=== PATIENT | female | born 1975 | race Caucasian/White ===

== ENCOUNTER → 2016-08-29 | Outpatient (CLI) | payer OTHER ==
--- NOTE | 2016-08-29 11:14 | USB ---
Reason for exam: follow-up at short interval from prior study. History: Family history of breast cancer in mother at age 58. Physical Findings: Nurse did not find any significant physical abnormalities on exam. US Breast Limited BILAT Right breast ultrasound including all four quadrants, the retroareolar region and axilla demonstrates a 1.5 x 1.0 x 1.4cm oval, cystic, palpable lesion at 1 o'clock. Right breast ultrasound demonstrates a 1.2 x 0.9 x 1.2cm oval, cystic, palpable lesion at 10 o'clock and a 5.5 x 2.3 x 4.1cm oval, cystic, palpable lesion at 3 o'clock. These results were verbally communicated with the patient and result sheet given to the patient on 08/29/16. ASSESSMENT: Benign, BI-RAD 2 RECOMMENDATION: Follow-up diagnostic mammogram of both breasts.
--- NOTE | 2016-08-29 11:15 | MM ---
Reason for exam: additional evaluation requested from abnormal screening. Last mammogram was performed 1 year ago. History: Family history of breast cancer in mother at age 58. MG 3D Diag Mammo W/Cad RHEA Bilateral CC and MLO view(s) were taken. Prior study comparison: August 21, 2015, bilateral MG 3d diag mammo w/cad RHEA. June 02, 2014, right breast MG work up mamm w CAD RT. The breast tissue is extremely dense which could obscure a lesion on mammography. There is chronic nodularity in the left breast. There is no dominant lesion. These results were verbally communicated with the patient and result sheet given to the patient on 08/29/16. ASSESSMENT: Benign, BI-RAD 2 RECOMMENDATION: Routine screening mammogram of both breasts in 1 year. Manage on a clinical basis with regard to pain.
== END | disposition home or self-care (01) ==
LOC: RADUSWWP 09:34
PROVIDERS: ATTEND Surgery
DX: N60.09 Solitary cyst of unspecified breast (principal); R92.8 Other abnormal and inconclusive findings on diagnostic imaging of breast
CPT/HCPCS: 76642; G0204; G0279

== ENCOUNTER → 2017-07-22 | Outpatient (CLI) | payer OTHER ==
--- NOTE | 2017-07-23 10:24 | USB ---
Reason for exam: clinical finding. History: Family history of breast cancer in mother at age 58. Indicated problem(s): palpable abnormality and pain in both breasts. Physical Findings: Nurse Summary: numerous BB-palpable (nurse kp). US Breast BILAT Right breast ultrasound includes all four quadrants, the retroareolar region and axilla. Finding demonstrates a 0.8 x 0.6 x 0.7cm oval, cystic lesion at 1 o'clock and a 0.3 x 0.2 x 0.3cm oval, cystic, palpable lesion at 10 o'clock. Left breast ultrasound includes all four quadrants, the retroareolar region and axilla. Finding demonstrates a 2.2 x 1.5 x 2.6cm oval, cystic, palpable lesion at 2 o'clock, a 2.1 x 1.8 x 1.9cm oval, cystic, palpable lesion at 3 o'clock, a 0.6 x 0.3 x 0.5cm oval, mixed, hypoechoic lesion at 4 o'clock, 6 month follow up is stable can be considered benign and a 1.5 x 1.0 x 1.5cm oval, cystic, palpable lesion at 10 o'clock. These results were verbally communicated with the patient and result sheet given to the patient on 07/22/17. ASSESSMENT: Probably benign, BI-RAD 3 RECOMMENDATION: Ultrasound of the left breast in 6 months. (4 o'clock)
== END | disposition home or self-care (01) ==
LOC: RADUSWWP 08:39
PROVIDERS: ATTEND Surgery
DX: N60.09 Solitary cyst of unspecified breast (principal)

== ENCOUNTER → 2017-08-19 | Day surgery (SDC) | payer OTHER ==
[2017-08-19 12:14] VITALS: RESP 12
[2017-08-19 13:54] VITALS: BP 153/89; PULSE 64; TEMP 98.4
--- NOTE | 2017-08-19 16:52 | USB ---
EXAMINATION TYPE: US discontinued breast asp RT DATE OF EXAM: 08/19/2017 COMPARISON: NONE CLINICAL HISTORY: R92.8. Pain in right breast TECHNIQUE: Real-time linear array sonography is performed over the right breast with attention to th e right upper outer quadrant at the level of the patient's discomfort. Findings: There is normal breast tissue in the upper outer quadrant of the right breast. Note is made of a small cyst like structure measuring 0.6 x 0.5 x 0.5 cm at the 1:00 B to C region. This is away from the patient's location of pain. No suspicious ultrasound abnormalities in the upper outer quadra nt correlating to the patient's level of pain is identified. On close discussion with the patient, th is appears to correlate with the patient's menstrual cycle and is not focal or persistent. This case was discussed by telephone with Dr. Montiel by Dr. Ramirez. If there was a specific abnorm ality this would've been biopsied. Given the normal appearance on ultrasound no biopsy of the right b reast was performed at this time. Please also see left breast cyst aspiration x2 same date. IMPRESSION: 1. Normal upper outer quadrant right breast by ultrasound. 2. BI-RADS 1 Recommendations: 1. Clinical management of patient's breast pain. 2. Diagnostic imaging can be performed for changing or clinically suspicious findings.
--- NOTE | 2017-08-20 07:51 | MM ---
Reason for exam: additional evaluation requested from abnormal screening. Last mammogram was performed 1 year ago. History: Family history of breast cancer in mother at age 58. MG Diagnostic Mammo LT Wo CAD CC and LM view(s) were taken of the left breast. Prior study comparison: August 29, 2016, bilateral MG 3d diag mammo w/cad RHEA. August 21, 2015, bilateral MG 3d diag mammo w/cad RHEA. ASSESSMENT: Post procedure mammogram for marker placement RECOMMENDATION: Ultrasound of the left breast in 6 months. PENDING PATHOLOGY RESULTS.
--- NOTE | 2017-08-20 17:36 | USB ---
EXAMINATION TYPE: US breast aspiration single LT DATE OF EXAM: 08/20/2017 COMPARISON: NONE CLINICAL HISTORY: N60.02 Cyst of left breast. Second left breast cyst for aspiration. Technique: Real-time linear array sonography is performed over the left breast. Cysts at 2 and 3:00 are identified. 4:00 hypoechoic area appears stable from prior examinations. Case was discussed with Dr. Mo by Dr. Ramirez by telephone. The cysts at 2 and 3:00 recommended for aspiration due to patient's clinical findings. If abnormalities may be identified on the right this area would also be recommended. Subsequent evaluation of the right breast determine no ultrasound abnormality and no cysts and no aspiration on the right was performed. The procedure was explained to the patient, the risks complications and benefits. All questions are answered. Written and verbal informed consent was obtained. A timeout was performed. The 3:00 left breast cyst was localized. The skin was cleansed with Betadine. The skin and deeper breast tissue was anesthetized with 1% lidocaine with sodium bicarbonate. Under ultrasound guidance an 18-gauge needle was advanced into the cyst and the contents aspirated. Contents were labeled and transferred to pathology for additional evaluation. The 2:00 left breast cyst was localized. The skin was cleansed with Betadine. The skin and deeper breast tissue was anesthetized with 1% lidocaine with sodium bicarbonate. Under ultrasound guidance an 18-gauge needle was advanced into the cyst and the contents aspirated. Contents were labeled and transferred to pathology for additional evaluation. IMPRESSION: 1. Successful ultrasound-guided cyst aspiration 2:00 and 3:00 positions. Recommendations: 1. Final recommendations are pending pathology results. 2. Clinical management of patient's right breast pain. Pathology Results: Benign A. BREAST, LEFT, THREE O'CLOCK, CORE BIOPSY: DEGENERATED CELLULAR MATERIAL, FOAMY HISTIOCYTES AND RARE AGGREGATES OF BLAND APOCRINE CELLS CONSISTENT WITH APOCRINE CYST/CYST CONTENTS. B. BREAST, LEFT, TWO O'CLOCK, ASPIRATE: DEGENERATED CELLULAR MATERIAL, BLOOD AND RARE AGGREGATE OF BLAND APOCRINE CELLS CONSISTENT WITH APOCRINE CYST/CYST CONTENTS. Recommendation Follow up ultrasound of the left breast in 6 months. [facility]
== END ==
LOC: RADUSWWP 11:58
PROVIDERS: ATTEND Surgery
DX: N60.02 Solitary cyst of left breast (principal); Z80.3 Family history of malignant neoplasm of breast
CPT/HCPCS: 76942; 77065; 88108; 88305

== ENCOUNTER → 2018-02-18 | Outpatient (CLI) | payer OTHER ==
--- NOTE | 2018-02-18 09:20 | MM ---
Reason for exam: follow-up at short interval from prior study. Last mammogram was performed 6 months ago. History: Family history of breast cancer in mother at age 58. US discontinued breast asp RT of the right breast, August 20, 2017. Benign US breast aspiration ea add LT of the left breast, August 19, 2017. Benign US breast aspiration single LT of the left breast, August 19, 2017. Physical Findings: Nurse Summary: various palpables bilateral breasts (nurse ts). MG 3D Diag Mammo W/Cad RHEA Bilateral CC and MLO view(s) were taken. Prior study comparison: August 19, 2017, left breast MG diagnostic mammo LT wo CAD. August 29, 2016, bilateral MG 3d diag mammo w/cad RHEA. The breast tissue is heterogeneously dense. This may lower the sensitivity of mammography. There is chronic nodularity bilaterally. No significant new findings when compared with previous films. These results were verbally communicated with the patient and result sheet given to the patient on 02/18/18. ASSESSMENT: Incomplete: need additional imaging evaluation, BI-RAD 0 RECOMMENDATION: Ultrasound of both breasts.
--- NOTE | 2018-02-18 09:25 | USB ---
Reason for exam: additional evaluation requested from abnormal screening. History: Family history of breast cancer in mother at age 58. US discontinued breast asp RT of the right breast, August 20, 2017. Benign US breast aspiration ea add LT of the left breast, August 19, 2017. Benign US breast aspiration single LT of the left breast, August 19, 2017. US Breast BILAT Right complete breast ultrasound includes all four quadrants, the retroareolar region and axilla. Finding demonstrates no cystic or solid lesion seen. Left complete breast ultrasound includes all four quadrants, the retroareolar region and axilla. Finding demonstrates a 1.1 x 0.7 x 0.9cm oval, cystic lesion at 2 o'clock, a 1.5 x 0.9 x 2.5cm oval, cystic lesion at 10 o'clock and a 1.7 x 1.1 x 1.5cm oval, cystic lesion at 9 o'clock. Heterogeneous dense tissue noted throughout both breast. These results were verbally communicated with the patient and result sheet given to the patient on 02/18/18. ASSESSMENT: Benign, BI-RAD 2 RECOMMENDATION: Surgical consultation of the left breast. Called with mammographic findings and has scheduled an appointment for the patient for 03/02/18 at 1:[address] Montiel. PRELIMINARY REPORT CALLED AND FAXED TO DR. MONTIEL ON 02/18/18. Routine screening mammogram of both breasts in 1 year.
== END | disposition home or self-care (01) ==
LOC: RADMAMWWP 07:37
PROVIDERS: ATTEND Surgery
DX: R92.8 Other abnormal and inconclusive findings on diagnostic imaging of breast (principal); N60.01 Solitary cyst of right breast; N60.02 Solitary cyst of left breast
CPT/HCPCS: 77066; 76641; G0279; 77062

== ENCOUNTER 2018-09-06 07:48 | Day surgery (SDC) | payer OTHER ==
[~2018-09-06 07:48] MED LIST: LACTATED RINGERS 1,000 ML IV SCH; SODIUM CHLORIDE 0.9% 1,000 ML IV SCH
[2018-09-06] MEDS ORDERED: SODIUM CHLORIDE 0.9% 1,000 ML IV ONE ×2 (08:36→13:40)
[2018-09-06] MEDS ORDERED: LIDOCAINE 1% INJ 10MG/ML (20 ML MDV) ONE (09:13)
[2018-09-06] MEDS ORDERED: HYDROmorphone (PF) 1 MG/ML ONE (10:10)
[2018-09-06] MEDS ORDERED: ISOPROTERENOL 250 MCG/1.25 ML SYR IV ONE (10:10)
[2018-09-06] MEDS ORDERED: KETAMINE 10 MG/ML 20 ML VIAL ONE (10:10)
[2018-09-06] MEDS ORDERED: MIDAZOLAM 2 MG/2 ML VIAL ONE (10:10)
[2018-09-06] MEDS ORDERED: fentaNYL (PF) 50 MCG/ML 2 ML AMP ONE (10:10)
[2018-09-06] MEDS ORDERED: PROPOFOL 10 MG/ML 20 ML VIAL IV ONE (10:10)
[2018-09-06] MEDS ORDERED: LIDOCAINE 1% INJ 10MG/ML (20 ML MDV) SQ ONE ×2 (10:43→11:50)
[2018-09-06] MEDS ORDERED: LACTATED RINGERS 1,000 ML IV ONE (13:40)
[2018-09-06] MEDS ORDERED: ACETAMINOPHEN IV (For NPO) 1,000 MG in EMPTY BAG 1 BAG IVPB ONE (13:47)
[2018-09-06] MEDS ORDERED: ACETAMINOPHEN TAB 325 MG TAB PO PRN (13:47)
[2018-09-06 15:11] VITALS: BMI 27.0
[2018-09-06] MEDS: HYDROcodone/APAP 5-325MG 1 EACH TAB PO PRN (15:19)
--- NOTE | 2018-09-06 17:55 | PCN ---
PROCEDURE NOTE This patient is a 43-year-old female with recurrent palpitations and documented narrow complex SVT, poor tolerance to multiple AV hemalatha blocking drugs and refractory to treatment. The patient was brought to the EP lab in a fasting state. Written informed consent was obtained prior to the procedure. Venous sheaths were placed in the right and left femoral veins: 3 venous sheaths in the right femoral vein and 1 venous sheath in the left femoral vein. Via these, diagnostic catheters were placed in the right heart (high right atrial catheter, His bundle catheter, RV catheter). Sinus cycle length 958 milliseconds, DC interval 142 milliseconds, QRS 82 milliseconds, QT 423 milliseconds. AH interval 63 milliseconds, HV interval 52 milliseconds. Sinus node recovery times at 600, 500 and 400 milliseconds were 961, 993 and 931 milliseconds. Corresponding corrected sinus node recovery times were within normal limits. AV node Wenckebach block 290 milliseconds. VA Wenckebach block 350 milliseconds. No delta waves. There was a semblance of slow pathway conduction in the baseline state as well as intermittent right bundle branch block aberrancy. Atrial extrastimulation was performed after double extra stimuli and single echo beats and double echo beats were noted. When ventricular extrastimulation was performed, no SVT was induced. Para-Hisian pacing was performed. A hemalatha response was noted. Isuprel was started wide open and then at 2 mcg. AV node Wenckebach block 200 milliseconds. Slow pathway was noted at 220 milliseconds. Very rapid SVT was induced consistently with rapid straight pacing at a cycle length of between 230 and 210 milliseconds from the high right atrium as well as from the coronary sinus. Septal times were short and less than 60 milliseconds. However, despite multiple efforts on Isuprel, the tachycardia could not be entrained from the right ventricle and therefore we could never really prove if it was a septal atrial tachycardia with activation with conduction down the slow pathway or AV hemalatha reentry. However, since she had a slow pathway, we proceeded with ablation of the slow pathway. This was a difficult and a long procedure. Three-D mapping was performed. The His cloud was quite large and extended inferiorly and close to almost 1.2 cm away from the coronary sinus os. RF ablation was applied in the posterior septal region. Finally, successful ablation was performed in the posterior septal region. Good power and adequate temperatures were achieved and the tachycardia was rendered non-inducible. However, it took a long time to map the slow pathway, more than usual. Because of the unusual anatomy, a slightly more posteriorly located coronary sinus, successful ablation was performed quite anterior to the coronary sinus in the posterior septal area. The patient tolerated the procedure well without any acute complications. High-dose Isuprel was then started at the end of the procedure and there was no evidence of slow pathway conduction and there was no evidence for AV hemalatha reentry. This was a sharp contrast to before the procedure, when she had AV hemalatha reentry induced very easily with straight atrial pacing on Isuprel. However, since we had never excluded septal atrial tachycardia, after every few RF ablations we would go back and look for any inducibility, and up until the posterior septal path area was mapped and ablated, the tachycardia continued. Once this area was ablated right in front of the in the coronary sinus os, no further SVT was induced. The patient tolerated the procedure well without any acute complications. 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 PROCEDURES PERFORMED: 1. Comprehensive diagnostic EP study. 2. CS pacing and recording. 3. Three-D mapping. 4. Programmed stimulation after Isuprel. 5. Three-D mapping and radiofrequency ablation of the slow pathway. Extended procedure. MMODL / IJN: [id number] /
[2018-09-06] MEDS ORDERED: CYCLOBENZAPRINE 10 MG TAB PO PRN (21:17)
[2018-09-07] MEDS: HYDROcodone/APAP 5-325MG 1 EACH TAB PO PRN (06:03)
[2018-09-07] MEDS ORDERED: LEVOTHYROXINE 112 MCG TAB PO SCH (06:30)
[2018-09-07 07:32] VITALS: BP 119/74; PULSE 75; RESP 18; TEMP 98.3
[2018-09-07] MEDS ORDERED: MONTELUKAST 10 MG TAB PO SCH (09:00)
--- NOTE | 2018-09-07 09:39 | P.DS ---
Providers Attending physician: Stone Bradshaw Primary care physician: [place] [facility] Course: Patient is doing well. No chest discomfort dizziness lightheadedness palpitations Runs of healed well mildly tender no hematoma Vitals are stable blood pressure 119/74 mmHg pulse rate in the 70s Breath sounds are clear no rhonchi no crackles Heart sounds are normal normal S1 normal S2 no murmurs or gallops or rub Abdomen soft Extremities warm no edema Impression Recurrent SVT assessment of AV node reentry Status post successful slow pathway ablation and the tachycardia was rendered noninducible Suggest Stop metoprolol Discharge home today in follow-up with Dr. Martinez in 1-2 weeks Plan - Discharge Summary Discharge Rx Participant: Yes New Discharge Prescriptions: Discontinued Metoprolol Tartrate [Lopressor] 25 each PO BID No Action HYDROcodone/APAP 10-325MG [[place] 10-325] 1 tab PO BID PRN PRN Reason: Pain Cyclobenzaprine [Flexeril] 10 mg PO DAILY PRN PRN Reason: muscle relaxant Levothyroxine Sodium 112 mcg PO DAILY Montelukast [Singulair] 10 mg PO DAILY FLUoxetine HCL [PROzac] 20 mg PO HS Cetirizine HCl [Zyrtec] 10 mg PO DAILY Albuterol Inhaler [Ventolin Hfa Inhaler] 1 - 2 puff INHALATION RT-Q6H PRN MDD S PRN Reason: Shortness Of Breath Fluticasone Nasal [place] [Flonase Nasal Arg[place]] 1 spray EA NOSTRIL BID Ibuprofen [Motrin] 800 mg PO DAILY PRN PRN Reason: Pain Cholecalciferol (Vitamin D3) [Vitamin D3] 20,000 unit PO WEEKLY Discharge Medication List Cyclobenzaprine [Flexeril] 10 mg PO DAILY PRN 12/05/15 [History] HYDROcodone/APAP 10-325MG [[place] 10-325] 1 tab PO BID PRN 12/05/15 [History] Albuterol Inhaler [Ventolin Hfa Inhaler] 1 - 2 puff INHALATION RT-Q6H PRN MDD S 09/01/18 [History] Cetirizine HCl [Zyrtec] 10 mg PO DAILY 09/01/18 [History] Cholecalciferol (Vitamin D3) [Vitamin D3] 20,000 unit PO WEEKLY 09/01/18 [ History] FLUoxetine HCL [PROzac] 20 mg PO HS 09/01/18 [History] Fluticasone Nasal [place] [Flonase Nasal [place]] 1 spray EA NOSTRIL BID 09/01/18 [ History] Ibuprofen [Motrin] 800 mg PO DAILY PRN 09/01/18 [History] Levothyroxine Sodium 112 mcg PO DAILY 09/01/18 [History] Montelukast [Singulair] 10 mg PO DAILY 09/01/18 [History] Follow up Appointment(s)/Referral(s): Star Rosales MD [STAFF PHYSICIAN] - 1 Week Activity/Diet/Wound Care/Special Instructions: Post EP study - Ablation instructions 1. Keep access sites dry for 2 days. 2. No heavy lifting or straining for 2 days. 3. Avoid bending the hips repeatedly for 2 days. 4. You may go up and down stairs slowly Call if the following is noted 1. Bleeding, increasing swelling or pain at the access sites. 2. Increasing chest discomfort, especially upon taking a deep breath. 3. Increasing shortness of breath, at rest or with exertion. 4. Undue cough / phlegm 5. Difficulty or pain while swallowing. 6. Pain or change in color in the extremities. 7. Fever, chills, rigors. 8. Increasing headache or neurologic symptoms. 9. Dizziness, fainting, palpitations Stop metoprolol Discharge Disposition: HOME SELF-CARE
[2018-09-07] MEDS ORDERED: FLUoxetine HCL 20 MG CAP PO SCH (21:00)
== END 2018-09-07 10:15 | disposition home or self-care (01) ==
LOC: CATHEP 07:48 → 1SOBS 14:07 → CATHEP 09-07 10:15
PROVIDERS: ATTEND Internal Medicine Clinical Cardiac Electrophysiology
DX: I47.1 Supraventricular tachycardia (principal); I45.10 Unspecified right bundle-branch block; I10 Essential (primary) hypertension; E03.9 Hypothyroidism, unspecified; F41.9 Anxiety disorder, unspecified; F32.9 Major depressive disorder, single episode, unspecified; Z79.890 Hormone replacement therapy; Z79.899 Other long term (current) drug therapy; J30.81 Allergic rhinitis due to animal (cat) (dog) hair and dander; J30.1 Allergic rhinitis due to pollen; Z91.040 Latex allergy status; Z91.011 Allergy to milk products; Z91.018 Allergy to other foods; Z88.8 Allergy status to other drugs, medicaments and biological substances; Z14.8 Genetic carrier of other disease
CPT/HCPCS: 93623; 93613; 93653; 81025; C1894; C1769 ×2; C1893; C1732; C1730 ×2; J2250; J2001; J3010; J1170; J2704

== ENCOUNTER → 2019-02-21 | Outpatient (CLI) | payer OTHER ==
--- NOTE | 2019-02-23 08:16 | MM ---
Reason for exam: screening (asymptomatic). Last mammogram was performed 1 year ago. History: Family history of breast cancer in mother at age 58. US discontinued breast asp RT of the right breast, August 20, 2017. Benign US breast aspiration ea add LT of the left breast, August 19, 2017. Benign US breast aspiration single LT of the left breast, August 19, 2017. Took hormonal contraceptives for 4 years. MG 3D Screening Mammo W/Cad Bilateral CC and MLO view(s) were taken. Prior study comparison: February 18, 2018, bilateral MG 3d diag mammo w/cad RHEA. August 19, 2017, left breast MG diagnostic mammo LT wo CAD. The breast tissue is heterogeneously dense. This may lower the sensitivity of mammography. No significant new finding whe compared with prior studies. ASSESSMENT: Benign, BI-RAD 2 RECOMMENDATION: Routine screening mammogram of both breasts in 1 year.
== END | disposition home or self-care (01) ==
LOC: RADMAMWWP 09:48
PROVIDERS: ATTEND Internal Medicine
DX: Z12.31 Encounter for screening mammogram for malignant neoplasm of breast (principal)
CPT/HCPCS: 77063; 77067

== ENCOUNTER → 2019-04-04 | Outpatient (CLI) | payer OTHER ==
--- NOTE | 2019-04-04 17:59 | MR ---
MRI CERVICAL SPINE: CLINICAL HISTORY: Cervicalgia. Headache and neck pain causing bilateral upper extremity weakness and numbness TECHNIQUE: Multiplanar, multisequence imaging of the cervical spine is performed without IV contrast. COMPARISON: MRI cervical spine May 03, 2014 FINDINGS: Sagittal images of the cervical spine show the craniocervical junction to remain within nor mal limits. The cervical and upper thoracic spinal cord remains stable in caliber and signal. Straig htening of cervical spine is redemonstrated. The vertebral body heights remain normal. Moderate dis c space narrowing C4-C5 and C5-C6 levels redemonstrated. Heterogeneous Modic type II endplate changes again seen increased in prominence from prior. Axial images show the C2-C3 and C3-C4 levels remain within normal limits. Axial images at C4-C5 level showed new broad-based posterior disc protrusion facing anterior thecal s ac nearly up to ventral surface of spinal cord and causing mild left greater than right bilateral benji ral foraminal narrowing. Improvement and right paracentral disc herniation noted from prior. Axial images at C5-C6 level shows lobulated left paracentral/foraminal disc protrusion effaces the an terior thecal sac and causing asymmetric moderate left-sided neural foraminal narrowing. No significa nt change from prior. Axial images at C6-C7 level showed broad based central and paracentral disc protrusion effacing the a nterior thecal sac and causing moderate to severe left and mild right-sided neural foraminal narrowin g with increased neural foraminal narrowing noted versus prior study. Axial images at C7-T1 level show right paracentral/foraminal disc protrusion effacing the anterolater al thecal sac with advanced right and moderate left-sided neural foraminal narrowing. Findings new or more prominent from prior. Suspect 1.1 cm cystic left thyroid nodule stable or slightly smaller in size from prior study axial i mage 12. IMPRESSION: Straightening of cervical spine with multilevel degenerative changes as detailed above. S ome progression in findings lower cervical levels noted from prior.
--- NOTE | 2019-04-04 18:12 | MR ---
EXAMINATION TYPE: MR lumbar spine wo/w con DATE OF EXAM: 04/04/2019 COMPARISON: NONE HISTORY: LBP, LLE radic, hx surgery TECHNIQUE: Multiplanar, multisequence images of the lumbar spine is performed without and with IV contrast, util izing 7.5 mL intravenous Gadavist FINDINGS: Sagittal images of the lumbar spine show vertebral body heights and alignment to remain sat isfactory. Persistent disc desiccation L4-L5 and L5-S1 levels. New Disc desiccation L3-L4 level. Pers istent moderate to severe disc space narrowing L5-S1 level with Modic type II endplate changes redemo nstrated. Annular tear L4-L5 level. The conus medullaris remains normal in position and signal ending mid L1 level. No suspicious enhancement is seen. Axial images at T12-L1 level redemonstrated left paracentral disc protrusion effacing the anterolater al thecal sac axial image 30 which is not significantly changed from prior. Axial images at L1-L2 and L2-L3 levels remain within normal limits. Axial images at L3-L4 level show new mild broad based disc protrusion minimally effacing the anterior thecal sac. Axial images at the L4-L5 level show persistent broad disc bulge with central disc protrusion compone nt effacing anterior thecal sac. Bilateral neural foramina are patent. No significant change from jael or. Axial images at the L5-S1 level shows mild facet degenerative changes bilaterally. Left-sided laminec sara defect is seen. There is moderate broad disc bulge with left paracentral disc protrusion compone nt mildly effacing the anterior thecal sac. Bilateral neural foramina remain patent. There is new moderate to severe left-sided hydronephrosis. IMPRESSION: Multilevel degenerative changes in the lumbar spine as detailed above. Some progression f rom 2010 study noted. New Moderate to severe left-sided hydronephrosis is felt present and warrants f urther clinical workup. Consider obstructing left ureter calculus. A Yellow level critical message alert has been initiated for Radha Spence MD via the [facility] Critical Results System on 04/04/2019 6:09 PM. This message alert has been sent to MD edward Clemens the preferences provided by the clinician for the receipt of Radiology Critical Findings. Message ID [id number].
== END | disposition home or self-care (01) ==
LOC: RADMRIMAIN 14:51
PROVIDERS: ATTEND Internal Medicine
DX: M47.812 Spondylosis without myelopathy or radiculopathy, cervical region (principal); M47.817 Spondylosis without myelopathy or radiculopathy, lumbosacral region
CPT/HCPCS: 72141; 72158; A9585

== ENCOUNTER → 2019-04-07 | Outpatient (CLI) | payer OTHER ==
--- NOTE | 2019-04-07 10:56 | XR ---
EXAMINATION TYPE: XR KUB DATE OF EXAM: 04/07/2019 HISTORY: Pain Comparison: 01/25/2016 Single KUB is submitted for interpretation. Findings: Right renal calculi: 2 right renal calculi seen lower pole measuring up to 3.8 mm. Right ureteral calculi: None Visualized. Left renal calculi: Mid left renal calculus noted measuring 3.5 mm. Calculus at the level of the lef t UPJ measuring 6.8 mm transverse dimension. Additional calculus overlying the left L4 transverse pro cess measuring 5.5 mm. Left ureteral calculi: None Visualized. Pelvic calcifications: Stable pelvic phleboliths noted. Bowel gas pattern is unremarkable. No free air. No mass effects. IMPRESSION: 1. Left-sided UPJ calculus and proximal left ureteral calculus identified. 2. Bilateral nephrolithiasis.
== END | disposition home or self-care (01) ==
LOC: RADXRMAIN 10:42
PROVIDERS: ATTEND Urology
DX: N20.2 Calculus of kidney with calculus of ureter (principal)
CPT/HCPCS: 74018

== ENCOUNTER → 2019-04-08 | Outpatient (CLI) | payer OTHER ==
[2019-04-08 09:38] LABS: Basophils % (A) 1 %; Eosinophils # (A) 0.2 k/uL (0-0.7); Eosinophils % (A) 4 %; HCT 41.7 % (34.0-46.0); HGB 14.4 gm/dL (11.4-16.0); Lymphocytes # (A) 1.5 k/uL (1.0-4.8); Lymphocytes % (A) 26 %; MCH 32.4 pg (25.0-35.0); MCHC 34.4 g/dL (31.0-37.0); Mean Platelet Volume 7.3; Monocytes # (A) 0.3 k/uL (0-1.0); Monocytes % (A) 6 %; Neutrophils # (A) 3.6 k/uL (1.3-7.7); Neutrophils % (A) 62 %; Platelet Count 222 k/uL (150-450); RBC 4.44 m/uL (3.80-5.40); RDW 14.2 % (11.5-15.5); WBC 5.8 k/uL (3.8-10.6)
[2019-04-08 09:47] LABS: Potassium 3.7 mmol/L (3.5-5.1)
[2019-04-08 10:06] LABS: Appearance,Urine Cloudy (Clear); Bacteria,Urine Rare /hpf; Bilirubin,Urine Negative (Negative); Blood,Urine Small (Negative); Color,Urine Yellow; Glucose,Urine (UA) Negative (Negative); Ketones,Urine Negative (Negative); Leukocyte Esterase,Urine Moderate (Negative); Mucus,Urine Occasional /hpf; Nitrite,Urine Negative (Negative); PH, Urine 6.5 (5.0-8.0); Protein,Urine Trace (Negative); RBC,Urine 2 /hpf (0-5); Specific Gravity,Urine 1.017 (1.001-1.035); Squamous Epithelial Cell,Urine 16 /hpf (0-4); Urobilinogen,Urine <2.0 mg/dL (<2.0); WBC,Urine 30 /hpf (0-5)
== END | disposition home or self-care (01) ==
LOC: LABPAT 08:53
PROVIDERS: ATTEND Urology
DX: Z01.818 Encounter for other preprocedural examination (principal); Z01.812 Encounter for preprocedural laboratory examination; I49.9 Cardiac arrhythmia, unspecified; N20.1 Calculus of ureter; R53.83 Other fatigue; R35.0 Frequency of micturition; Z79.899 Other long term (current) drug therapy
CPT/HCPCS: 36415; 80051; 81001; 82565; 84520; 85025; 93005

== ENCOUNTER 2019-04-11 08:59 | Day surgery (SDC) | payer OTHER ==
[2019-04-08 11:39] VITALS: BMI 26.7
--- NOTE | 2019-04-10 22:34 | HP ---
HISTORY AND PHYSICAL DIAGNOSIS: Left ureteral stone. Fern Cuenca is a 44-year-old female with history of stones. She was having bilateral back pain. On 04/04/2019, she had an MRI which identified left hydronephrosis. The patient had a KUB, identifying 2 proximal ureteral stones, 5 and 6 mm on the left and a 3-4 mm left lower pole stone. She was seen in the office and was still having pain. With the MRI findings with a left-sided hydronephrosis and a KUB, the diagnosis was upper ureteral stones. We discussed treatment options. The patient wishes to proceed with shockwave lithotripsy. PAST HISTORY: ALLERGIES: COMPAZINE. MEDICATIONS: Cetirizine, Flexeril, Singulair, flecainide, [place], levothyroxine, Motrin. MEDICAL ILLNESSES: Positive for asthma. She has mitral valve prolapse. She has hypothyroidism. SURGICAL HISTORY: Includes a salpingotomy, back surgery, shockwave lithotripsy x2. FAMILY HISTORY: Noncontributory. SOCIAL HISTORY: Noncontributory. REVIEW OF SYSTEMS: Is noncontributory. PHYSICAL EXAMINATION: On examination, pleasant, white female, 181 pounds, 69 inches, blood pressure 118/78, pulse 73, respirations 16. HEENT: Clear. CHEST: Clear to auscultation. HEART is without murmur or gallop. ABDOMEN: Soft, no organomegaly. EXTREMITIES: No edema. NEUROLOGIC exam is grossly intact. IMPRESSION: The patient has left ureteral calculi with colic and comes for shockwave lithotripsy. MMODL / IJN: [id number] /
[~2019-04-11 08:59] MED LIST changes: +LIDOCAINE 1% 20 ML VIAL (10MG/ML) FOR IV START INTRADERMA PRN; +Pre Op ABX Message 1 EACH MISC MISCELLANE ONE; -SODIUM CHLORIDE 0.9% 1,000 ML IV SCH
--- NOTE | 2019-04-11 09:21 | XR ---
EXAMINATION TYPE: XR KUB DATE OF EXAM: 04/11/2019 CLINICAL DATA: 44-year-old female presurgical evaluation, [facility] COMPARISON: 04/07/2019 FINDINGS: Nonobstructive bowel gas pattern. Moderate overall stool burden. Redemonstrated bilateral nephrolithiasis measuring 4 mm and 3 mm on the right and 4 mm and 9 mm on th e left. There is one calcification which is more medially located in the mid abdomen measuring 8 mm a nd could correspond to an upper ureteral calculus. IMPRESSION: 1. Bilateral nephrolithiasis measuring up to 9 mm. 2. A 8 mm calcification in the left paramedian mid abdomen is more inferior and medially located and could be in the upper left ureter, unchanged from prior.
[2019-04-11] MEDS ORDERED: FUROSEMIDE 10 MG/ML 2 ML VIAL IV STA (11:05)
[2019-04-11] MEDS ORDERED: fentaNYL (PF) 50 MCG/ML 2 ML AMP ONE (11:18)
[2019-04-11] MEDS ORDERED: MIDAZOLAM 2 MG/2 ML VIAL ONE (11:18)
[2019-04-11] MEDS ORDERED: FUROSEMIDE 10 MG/ML 2 ML VIAL ONE (11:18)
[2019-04-11] MEDS ORDERED: PROPOFOL 10 MG/ML 20 ML VIAL IV ONE (11:18)
--- NOTE | 2019-04-11 12:13 | P.OP ---
Date of Procedure: 04/11/19 Preoperative Diagnosis: Left ureteral calculi, left renal calculi Postoperative Diagnosis: Same Procedure(s) Performed: Left extracorporeal shockwave lithotripsy (ESWL) Anesthesia: FLORECITA Surgeon: Florentino Lomeli Estimated Blood Loss (ml): 0 IV fluids (ml): 450 Pathology: none sent Condition: stable Disposition: PACU Indications for Procedure: The patient is a 44-year-old white female with a history of urolithiasis. A recent MRI showed left hydronephrosis due to 2 left proximal ureteral calculi. A KUB x-ray shows these calculi, as well as renal calculi. She comes for ESWL. Operative Findings: Excellent fragmentation of the calculi treated. Description of Procedure: The patient was taken to the operating room and placed on the Dornier Compact Delta II lithotripter in the supine position. The calculi were seen on biplanar fluoroscopy. Lasix 10 mg was given intravenously. Once the patient was properly positioned and sedated, lithotripsy was performed. The energy level was gradually increased per protocol, to an energy level of 5. After 200 shocks were administered, a 2 minute pause was instituted per protocol. Initially, the more distal of the ureteral calculi was treated. Once this was no longer seen, the more proximal of the ureteral calculi was treated. After this was no longer visible, treatment moved to the kidney as several calculi were treated. A total of 2500 shocks were given at a rate of 80 shocks per minute. Fluoroscopy was utilized at a minimum to ensure proper positioning and determine the treatment status. None of the calculi could be seen following treatment, consistent with excellent fragmentation. The patient tolerated the procedure well was taken to the recovery room in stable condition. Instructions were given to strain the urine, and the patient will follow-up within one week.
[2019-04-11 12:33] VITALS: TEMP 97
[2019-04-11] MEDS: HYDROmorphone 1 MG/ML 1 ML SYRINGE IVP ONE ×2 (12:54→12:59)
[2019-04-11 13:08] VITALS: RESP 16
[2019-04-11 13:37] VITALS: BP 131/87; PULSE 60
== END 2019-04-11 14:00 | disposition home or self-care (01) ==
LOC: ORWHC2ENDO 08:59
PROVIDERS: ATTEND Urology
DX: N13.2 Hydronephrosis with renal and ureteral calculous obstruction (principal); E03.9 Hypothyroidism, unspecified; J45.909 Unspecified asthma, uncomplicated; Z79.899 Other long term (current) drug therapy; Z88.8 Allergy status to other drugs, medicaments and biological substances; Z79.1 Long term (current) use of non-steroidal anti-inflammatories (NSAID); Z79.891 Long term (current) use of opiate analgesic; Z79.51 Long term (current) use of inhaled steroids; Z91.040 Latex allergy status; Z91.011 Allergy to milk products
CPT/HCPCS: 74018; 50590; J2250; J1940; J3010; J1170; J2704

== ENCOUNTER → 2019-04-16 | Outpatient (CLI) | payer OTHER ==
--- NOTE | 2019-04-16 11:07 | XR ---
EXAMINATION TYPE: XR KUB DATE OF EXAM: 04/16/2019 HISTORY: Pain Comparison: 04/11/2019 Single KUB is submitted for interpretation. Findings: Right renal calculi: Lower pole right-sided nephrolithiasis measuring 3.3 and 2.2 mm. Right ureteral calculi: None Visualized. Left renal calculi: Left mid pole renal calculus measuring 4.5 mm. Left ureteral calculi: None Visualized. Pelvic calcifications: None Visualized. Bowel gas pattern is unremarkable. No free air. No mass effects. IMPRESSION: 1. Lateral nephrolithiasis.
== END | disposition home or self-care (01) ==
LOC: RADXRMAIN 10:38
PROVIDERS: ATTEND Urology
DX: N20.0 Calculus of kidney (principal)
CPT/HCPCS: 74018

== ENCOUNTER 2019-08-20 15:02 | Emergency (ER) | payer OTHER ==
[2019-08-20 15:23] VITALS: RESP 18; TEMP 98.6
[2019-08-20] MEDS ORDERED: KETOROLAC 30 MG/ML 1 ML VIAL IM STA (15:43)
--- NOTE | 2019-08-20 16:05 | ED ---
Lower Extremity Injury HPI - General Chief Complaint: Extremity Injury, Lower Stated Complaint: Foot pain Time Seen by Provider: 08/20/19 15:25 Source: patient Mode of arrival: ambulatory Limitations: no limitations - History of Present Illness Initial Comments: 44-year-old female presenting for right foot pain and swelling x 1 day. Patient states that she is pain over the base of the right great toe. Patient does have history of kidney stones is unsure of the type is stone that she produces. Patient denies any chest pain shortness of breath. Patient denies any history of DVT or pulmonary embolism patient denies any calf pain patient is a recent surgical procedures history of active or previous cancer denies any hormone use or recent immobilization or travel. Patient has no other complaints she states it increases and tenderness with ambulation. Patient denies noting any direct injury or trauma. Patient denies any fever or flulike symptoms or noting any significant redness at this time she states than ongoing for the past day. Remaining review of systems negative upon arrival patient's amateur she appears well no signs of acute distress. Pt states that she was concerned of a blood clot and that is why she presents emergency department today - Related Data Home Medications Medication Instructions Recorded Confirmed Cyclobenzaprine [Flexeril] 10 mg PO DAILY PRN 12/05/15 04/11/19 HYDROcodone/APAP 10-325MG [[place] 1 tab PO BID PRN 12/05/15 04/11/19 10-325] Albuterol Inhaler [Ventolin Hfa 1 - 2 puff INHALATION RT-Q6H PRN 09/01/18 04/11/19 Inhaler] MDD S Cetirizine HCl [Zyrtec] 10 mg PO DAILY 09/01/18 04/11/19 Cholecalciferol (Vitamin D3) 20,000 unit PO WEEKLY 09/01/18 04/11/19 [Vitamin D3] FLUoxetine HCL [PROzac] 20 mg PO HS 09/01/18 04/11/19 Fluticasone Nasal [place] [Flonase 1 spray EA NOSTRIL BID 09/01/18 04/11/19 Nasal [place]] Ibuprofen [Motrin] 800 mg PO DAILY PRN 09/01/18 04/11/19 Levothyroxine Sodium 112 mcg PO DAILY 09/01/18 04/11/19 Montelukast [Singulair] 10 mg PO DAILY 09/01/18 04/11/19 Ergocalciferol (Vitamin D2) 50,000 unit PO WE 04/08/19 04/11/19 [Vitamin D2] Flecainide [Tambocor] 50 mg PO Q12HR 04/08/19 04/11/19 Previous Rx's Medication Instructions Recorded HYDROcodone/APAP 10-325MG [[place] 1 tab PO Q6HR PRN 3 Days #10 tab 04/11/19 10-325] Indomethacin [Indocin] 50 mg PO TID 5 Days #15 capsule 08/20/19 Allergies Allergy/AdvReac Type Severity Reaction Status Date / Time cat dander Allergy Unknown Allergy Verified 04/08/19 11:11 testing positive dog dander Allergy Unknown Allergy Verified 04/08/19 11:11 testing positive grass pollen Allergy Unknown Allergy Verified 04/08/19 11:11 testing positive latex Allergy Unknown Itching Verified 04/08/19 11:11 milk Allergy Unknown Allergy Verified 04/08/19 11:11 testing positive ragweed pollen Allergy Unknown Allergy Verified 04/08/19 11:11 testing positive tree and shrub pollen Allergy Unknown Allergy Verified 04/08/19 11:11 testing positive prochlorperazine Allergy jerking,twi Verified 04/08/19 11:11 [From Compazine] tching prochlorperazine edisylate Allergy jerking,twi Verified 04/08/19 11:11 [From Compazine] tching prochlorperazine maleate Allergy jerking,twi Verified 04/08/19 11:11 [From Compazine] tching cantolope Allergy Unknown Allergy Uncoded 04/08/19 11:11 testing positive Review of Systems ROS Statement: Those systems with pertinent positive or pertinent negative responses have been documented in the HPI. ROS Other: All systems not noted in ROS Statement are negative. Past Medical History Past Medical History: Supraventricular Tachycardia (SVT), Thyroid Disorder Additional Past Medical History / Comment(s): kidney stones, RECENT KIDNEY BLOCKAGE, hx. 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 Patient states that she has always done well with anesthesia but in November with uterine ablation she states that she noticed it "took her longer to recover" as she was very groggy into the next day and felt as if she had been drugged. Past Psychological History: Anxiety Smoking Status: Never smoker Past Alcohol Use History: None Reported Past Drug Use History: Marijuana - Past Family History Mother Family Medical History: Cancer Additional Family Medical History / Comment(s): breast cancer dx at age 56 Father Family Medical History: Diabetes Mellitus Additional Family Medical History / Comment(s): Diabetes Type 2, General Exam - General Exam Comments Initial Comments: General: The patient is awake and alert, in no distress, and does not appear acutely ill. Eye: Pupils are equal, round and reactive to light, extra-ocular movements are intact. No nystagmus. There is normal conjunctiva bilaterally. No signs of icterus. Cardiovascular: There is a regular rate and rhythm. No murmur, rub or gallop is appreciated. Respiratory: Lungs are clear to auscultation, respirations are non-labored, breath sounds are equal. No wheezes, stridor, rales, or rhonchi. Musculoskeletal: Slight swellling, no redness but pain to palpation localized over the great toe MTP joint. No pain in the forefoot or calf. (-) Homans. Normal ROM, no tenderness of ankles/kness. Strength 5/5. Sensation intact. DP pulses equal bilaterally 2+. No coolness, or pallor. Neurological: A&O x 3. CN II-XII intact grossly, There are no obvious motor or sensory deficits. Coordination appears grossly intact. Speech is normal. Skin: Skin is warm and dry and no rashes or lesions are noted. Psychiatric: Cooperative, appropriate mood & affect, normal judgment. Limitations: no limitations Course Vital Signs 08/20/19 08/20/19 08/20/19 15:21 17:43 17:47 Temperature 98.6 F 98.6 F 98.6 F Pulse Rate 90 77 77 Respiratory 18 18 18 Rate Blood Pressure 122/75 163/100 163/100 O2 Sat by Pulse 98 99 99 Oximetry Medical Decision Making - Medical Decision Making She fell 4-year-old female presenting for right great toe pain patient noticed slight swelling was concerned she had a blood clot. No history. Patient has no concerning risk factors ultrasound was obtained to rule out a clot revealing no acute findings. My suspicion was low patient does have what appears clinically to be possible gouty exacerbation patient has known history of recurrent kidney stones unsure of the origin. Patient will be started on indomethacin with return parameters A fevers or increasing pain and swelling. I discussed the importance of primary care follow-up patient is agreeable to this Plan discharge discussed case with . he was agreeable with this care plan as well. Disposition Clinical Impression: Pain of right great toe Disposition: HOME SELF-CARE Condition: Good Instructions (If sedation given, give patient instructions): Gout (ED) Additional Instructions: Please use medication as discussed. Please follow-up with family doctor in the next 2 days. Please return to emergency room if the symptoms increase or worsen or for any other concerns. Prescriptions: Indomethacin [Indocin] 50 mg PO TID 5 Days #15 capsule Is patient prescribed a controlled substance at d/c from ED?: No Referrals: Radha Spence MD [Primary Care Provider] - 1-2 days Time of Disposition: 17:24
--- NOTE | 2019-08-20 16:40 | XR ---
EXAMINATION TYPE: XR foot complete RT DATE OF EXAM: 08/20/2019 COMPARISON: NONE HISTORY: Pain and swelling TECHNIQUE: 3 views FINDINGS: There is plantar calcaneal spurring. There is some spurring at the first metatarsal head. I see no fracture nor dislocation. IMPRESSION: Mild degenerative spurring. No fracture seen.
--- NOTE | 2019-08-20 17:09 | US ---
EXAMINATION TYPE: US venous doppler duplex LE RT DATE OF EXAM: 08/20/2019 4:58 PM COMPARISON: NONE CLINICAL HISTORY: foot swelling. foot swelling x 2 days, no h/o dvt SIDE PERFORMED: Right TECHNIQUE: The lower extremity deep venous system is examined utilizing real time linear array sonog fidelia with graded compression, doppler sonography and color-flow sonography. VESSELS IMAGED: External Iliac Vein (EIV) Common Femoral Vein Deep Femoral Vein Greater Saphenous Vein * Femoral Vein Popliteal Vein Small Saphenous Vein * Proximal Calf Veins (* superficial vessels) Right Leg: Appears negative for DVT IMPRESSION: No evidence of deep venous thrombosis in the right leg. Negative exam.
[2019-08-20 17:47] VITALS: BP 163/100; PULSE 77
== END 2019-08-20 17:47 | disposition home or self-care (01) ==
LOC: EC 15:02
DX: M79.674 Pain in right toe(s) (principal); M79.89 Other specified soft tissue disorders; E03.9 Hypothyroidism, unspecified; F41.9 Anxiety disorder, unspecified; J30.1 Allergic rhinitis due to pollen; Z79.890 Hormone replacement therapy; Z79.899 Other long term (current) drug therapy; Z87.442 Personal history of urinary calculi; Z91.040 Latex allergy status; Z91.011 Allergy to milk products; Z88.8 Allergy status to other drugs, medicaments and biological substances; Z91.048 Other nonmedicinal substance allergy status; Z86.79 Personal history of other diseases of the circulatory system
CPT/HCPCS: 73630; 93971; 99284; 96372; J1885

== ENCOUNTER 2019-12-15 20:19 | Emergency (ER) | payer OTHER ==
[2019-12-15 20:30] VITALS: TEMP 97.6
[2019-12-15] MEDS ORDERED: SODIUM CHLORIDE 0.9% 1,000 ML IV STA (20:58)
[2019-12-15] MEDS ORDERED: MORPHINE SULFATE 4 MG/ML SYRINGE IV STA ×2 (20:58→22:41)
[2019-12-15] MEDS ORDERED: ONDANSETRON 4 MG/2 ML VIAL IVP STA (20:58)
--- NOTE | 2019-12-15 21:04 | ED ---
General Adult HPI - General Chief complaint: Abdominal Pain Stated complaint: poss kidney stones Time Seen by Provider: 12/15/19 20:36 Source: patient, RN notes reviewed, old records reviewed Mode of arrival: ambulatory Limitations: no limitations - History of Present Illness Initial comments: 44-year-old female patient presents to the chief complaint of right flank pain. Patient reports that she has had kidney stones in the past with urination and having significant pain as well as nausea. She reports that this does feel worse than her normal kidney stones and also she is experiencing significant hematuria and she has not expressed that prior. Denies any other complaints at this time. - Related Data Home Medications Medication Instructions Recorded Confirmed Cyclobenzaprine [Flexeril] 10 mg PO DAILY PRN 12/05/15 04/11/19 HYDROcodone/APAP 10-325MG [[place] 1 tab PO BID PRN 12/05/15 04/11/19 10-325] Albuterol Inhaler (Mhu) [Ventolin 1 - 2 puff INHALATION RT-Q6H PRN 09/01/18 04/11/19 Hfa Inhaler] MDD S Cetirizine HCl [Zyrtec] 10 mg PO DAILY 09/01/18 04/11/19 Cholecalciferol (Vitamin D3) 20,000 unit PO WEEKLY 09/01/18 04/11/19 [Vitamin D3] FLUoxetine HCL [PROzac] 20 mg PO HS 09/01/18 04/11/19 Fluticasone Nasal [place] [Flonase 1 spray EA NOSTRIL BID 09/01/18 04/11/19 Nasal [place]] Ibuprofen [Motrin] 800 mg PO DAILY PRN 09/01/18 04/11/19 Levothyroxine Sodium 112 mcg PO DAILY 09/01/18 04/11/19 Montelukast [Singulair] 10 mg PO DAILY 09/01/18 04/11/19 Ergocalciferol (Vitamin D2) 50,000 unit PO WE 04/08/19 04/11/19 [Vitamin D2] Flecainide [Tambocor] 50 mg PO Q12HR 04/08/19 04/11/19 Previous Rx's Medication Instructions Recorded HYDROcodone/APAP 10-325MG [[place] 1 tab PO Q6HR PRN 3 Days #10 tab 04/11/19 10-325] Indomethacin [Indocin] 50 mg PO TID 5 Days #15 capsule 08/20/19 Allergies Allergy/AdvReac Type Severity Reaction Status Date / Time cat dander Allergy Unknown Allergy Verified 12/15/19 20:30 testing positive dog dander Allergy Unknown Allergy Verified 12/15/19 20:30 testing positive grass pollen Allergy Unknown Allergy Verified 12/15/19 20:30 testing positive latex Allergy Unknown Itching Verified 12/15/19 20:30 milk Allergy Unknown Allergy Verified 12/15/19 20:30 testing positive ragweed pollen Allergy Unknown Allergy Verified 12/15/19 20:30 testing positive tree and shrub pollen Allergy Unknown Allergy Verified 12/15/19 20:30 testing positive prochlorperazine Allergy jerking,twi Verified 12/15/19 20:30 [From Compazine] tching prochlorperazine edisylate Allergy jerking,twi Verified 12/15/19 20:30 [From Compazine] tching prochlorperazine maleate Allergy jerking,twi Verified 12/15/19 20:30 [From Compazine] tching cantolope Allergy Unknown Allergy Uncoded 12/15/19 20:30 testing positive Review of Systems ROS Statement: Those systems with pertinent positive or pertinent negative responses have been documented in the HPI. ROS Other: All systems not noted in ROS Statement are negative. Past Medical History Past Medical History: Supraventricular Tachycardia (SVT), Thyroid Disorder Additional Past Medical History / Comment(s): kidney stones, RECENT KIDNEY BLOCKAGE, hx. SVT-palpitations, DDD, neck & back problems, carries gene for hemachromatosis, hypothyroidism, mitral valve regurgitation History of Any Multi-Drug Resistant Organisms: None Reported Past Surgical History: Back Surgery, Cardiac Ablation Additional Past Surgical History / Comment(s): lL5-S-1 discectomy, left salpingo-oophorectomy, laparoscopy, lithotripsy, radiation to thyroid, uterine ablation, Past Anesthesia/Blood Transfusion Reactions: No Reported Reaction Additional Past Anesthesia/Blood Transfusion Reaction / Comment(s): No transfusion to date. Patient states that she has always done well with anesthesia but in November with uterine ablation she states that she noticed it "took her longer to recover" as she was very groggy into the next day and felt as if she had been drugged. Past Psychological History: Anxiety Smoking Status: Never smoker Past Alcohol Use History: None Reported Past Drug Use History: Marijuana - Past Family History Mother Family Medical History: Cancer Additional Family Medical History / Comment(s): breast cancer dx at age 56 Father Family Medical History: Diabetes Mellitus Additional Family Medical History / Comment(s): Diabetes Type 2, General Exam - General Exam Comments Initial Comments: Constitutional: NAD, AOX3, Pt has pleasant affect. HEENT: NC/AT, trachea midline, neck supple, no lymphadenopathy. Posterior pharynx non erythematous, without exudates. External ears appear normal, without discharge. Mucous membranes moist. Eyes PERRLA, EOM intact. There is no scleral icterus. No pallor noted. Cardiopulmonary: RRR, no murmurs, rubs or gallops, no JVD noted. Lungs CTAB in anterior and posterior bloom. No peripheral edema. Abdominal exam: Abdomen soft and non-distended. Abdomen non-tender to palpation in all 4 quadrants. Bowel sounds active in LLQ. No hepatosplenomegaly. No ecchymosis. Right flank mild tenderness to palpation. Neuro: CN II-XII grossly intact. No nuchal rigidity. No raccon eyes, no low sign, no hemotympanum. No cervical spinal tenderness. MSK: No posterior calf tenderness bilaterally, homans sign negative bilaterally. Posterior tibialis and radial pulse +2 bilaterally. Sensation intact in upper and lower extremities. Full active ROM in upper and lower extremities, 5/5 stregnth. Limitations: no limitations Course Vital Signs 12/15/19 20:26 Temperature 97.6 F Pulse Rate 71 Respiratory 20 Rate Blood Pressure 161/91 O2 Sat by Pulse 100 Oximetry Medical Decision Making - Medical Decision Making 44-year-old female patient presentd to ED with chief complaint right flank pain. Reports she has had hematuria coming on for last 3 days. Reports that she has a kidney stones in the past however has never had hematuria like this. Patient vital signs are stable, afebrile. Physical exam displayed a phlegmon tender. Left investigations revealed mild increase in creatinine. UA displayed 182 red blood cells, 35 white blood cells, [address] abdomen and pelvis noncontrast labile to moderate right obstructive uropathy secondary 5 mm ureteropelvic of dictation. Patient's symptoms are well controlled ED pedal discharged with nausea pain medication and does have outpatient follow-up with urologist tomorrow will return to ER if condition worsens. Case discussed with Dr. Woody. - Lab Data Result diagrams: 12/15/19 21:15 12/15/19 21:15 Lab Results 12/15/19 12/15/19 12/15/19 Range/Units 21:15 21:15 21:15 WBC 8.0 (3.8-10.6) k/uL RBC 4.30 (3.80-5.40) m/uL Hgb 13.9 (11.4-16.0) gm/dL Hct 41.8 (34.0-46.0) % MCV 97.1 (80.0-100.0) fL MCH 32.3 (25.0-35.0) pg MCHC 33.3 (31.0-37.0) g/dL RDW 12.8 (11.5-15.5) % Plt Count 215 (150-450) k/uL Neutrophils % 60 % Lymphocytes % 30 % Monocytes % 6 % Eosinophils % 3 % Basophils % 1 % Neutrophils # 4.8 (1.3-7.7) k/uL Lymphocytes # 2.4 (1.0-4.8) k/uL Monocytes # 0.5 (0-1.0) k/uL Eosinophils # 0.2 (0-0.7) k/uL Basophils # 0.1 (0-0.2) k/uL Sodium 138 (137-145) mmol/L Potassium 4.4 (3.5-5.1) mmol/L Chloride 107 (98-107) mmol/L Carbon Dioxide 28 (22-30) mmol/L Anion Gap 3 mmol/L BUN 17 (7-17) mg/dL Creatinine 1.11 H (0.52-1.04) mg/dL Est GFR (CKD-EPI)AfAm 71 (>60 ml/min/1.73 sqM) Est GFR (CKD-EPI)NonAf 61 (>60 ml/min/1.73 sqM) Glucose 84 (74-99) mg/dL Plasma Lactic Acid Dialn (0.7-2.0) mmol/L Calcium 9.3 (8.4-10.2) mg/dL Total Bilirubin 0.4 (0.2-1.3) mg/dL AST 23 (14-36) U/L ALT 14 (4-34) U/L Alkaline Phosphatase 79 (38-126) U/L Total Protein 6.7 (6.3-8.2) g/dL Albumin 3.7 (3.5-5.0) g/dL Lipase 199 (23-300) U/L Urine Color Light Red Urine Appearance Cloudy H (Clear) Urine pH 6.0 (5.0-8.0) Ur Specific [place] 1.018 (1.001-1.035) Urine Protein 1+ H (Negative) Urine Glucose (UA) Negative (Negative) Urine Ketones Negative (Negative) Urine Blood Large H (Negative) Urine Nitrite Negative (Negative) Urine Bilirubin Negative (Negative) Urine Urobilinogen <2.0 (<2.0) mg/dL Ur Leukocyte Esterase Large H (Negative) Urine RBC >182 H (0-5) /hpf Urine WBC 35 H (0-5) /hpf Ur Squamous Epith Cells 72 H (0-4) /hpf Amorphous Sediment Moderate H (None) /hpf Urine Mucus Occasional H (None) /hpf 12/15/19 Range/Units 21:15 WBC (3.8-10.6) k/uL RBC (3.80-5.40) m/uL Hgb (11.4-16.0) gm/dL Hct (34.0-46.0) % MCV (80.0-100.0) fL MCH (25.0-35.0) pg MCHC (31.0-37.0) g/dL RDW (11.5-15.5) % Plt Count (150-450) k/uL Neutrophils % % Lymphocytes % % Monocytes % % Eosinophils % % Basophils % % Neutrophils # (1.3-7.7) k/uL Lymphocytes # (1.0-4.8) k/uL Monocytes # (0-1.0) k/uL Eosinophils # (0-0.7) k/uL Basophils # (0-0.2) k/uL Sodium (137-145) mmol/L Potassium (3.5-5.1) mmol/L Chloride (98-107) mmol/L Carbon Dioxide (22-30) mmol/L Anion Gap mmol/L BUN (7-17) mg/dL Creatinine (0.52-1.04) mg/dL Est GFR (CKD-EPI)AfAm (>60 ml/min/1.73 sqM) Est GFR (CKD-EPI)NonAf (>60 ml/min/1.73 sqM) Glucose (74-99) mg/dL Plasma Lactic Acid Dilan 1.1 (0.7-2.0) mmol/L Calcium (8.4-10.2) mg/dL Total Bilirubin (0.2-1.3) mg/dL AST (14-36) U/L ALT (4-34) U/L Alkaline Phosphatase (38-126) U/L Total Protein (6.3-8.2) g/dL Albumin (3.5-5.0) g/dL Lipase (23-300) U/L Urine Color Urine Appearance (Clear) Urine pH (5.0-8.0) Ur Specific [place] (1.001-1.035) Urine Protein (Negative) Urine Glucose (UA) (Negative) Urine Ketones (Negative) Urine Blood (Negative) Urine Nitrite (Negative) Urine Bilirubin (Negative) Urine Urobilinogen (<2.0) mg/dL Ur Leukocyte Esterase (Negative) Urine RBC (0-5) /hpf Urine WBC (0-5) /hpf Ur Squamous Epith Cells (0-4) /hpf Amorphous Sediment (None) /hpf Urine Mucus (None) /hpf Disposition Clinical Impression: Ureteral calculi Disposition: HOME SELF-CARE Condition: Stable Instructions (If sedation given, give patient instructions): Kidney Stones (ED) Additional Instructions: Follow-up with urologist tomorrow scheduled. May use nausea medication every 8 hours as needed. May use pain medication every 8 hours as needed. Return to ER if condition worsens. Is patient prescribed a controlled substance at d/c from ED?: No Referrals: Radha Spence MD [Primary Care Provider] - 1-2 days
[2019-12-15 21:30] LABS: Basophils # (A) 0.1 k/uL (0-0.2); Basophils % (A) 1 %; Eosinophils # (A) 0.2 k/uL (0-0.7); Eosinophils % (A) 3 %; HCT 41.8 % (34.0-46.0); HGB 13.9 gm/dL (11.4-16.0); Lymphocytes # (A) 2.4 k/uL (1.0-4.8); Lymphocytes % (A) 30 %; MCH 32.3 pg (25.0-35.0); MCHC 33.3 g/dL (31.0-37.0); MCV 97.1 fL (80.0-100.0); Mean Platelet Volume 7.7; Monocytes # (A) 0.5 k/uL (0-1.0); Monocytes % (A) 6 %; Neutrophils # (A) 4.8 k/uL (1.3-7.7); Neutrophils % (A) 60 %; Platelet Count 215 k/uL (150-450); RDW 12.8 % (11.5-15.5)
[2019-12-15 21:40] LABS: Amorphous Sediment,Urine Moderate /hpf; Appearance,Urine Cloudy (Clear); Bilirubin,Urine Negative (Negative); Blood,Urine Large (Negative); Color,Urine Light Red; Glucose,Urine (UA) Negative (Negative); Ketones,Urine Negative (Negative); Leukocyte Esterase,Urine Large (Negative); Mucus,Urine Occasional /hpf; Nitrite,Urine Negative (Negative); Protein,Urine 1+ (Negative); RBC,Urine >182 /hpf (0-5); Specific Gravity,Urine 1.018 (1.001-1.035); Squamous Epithelial Cell,Urine 72 /hpf (0-4); Urobilinogen,Urine <2.0 mg/dL (<2.0); WBC,Urine 35 /hpf (0-5)
[2019-12-15 22:00] LABS: Albumin 3.7 g/dL (3.5-5.0); Calcium 9.3 mg/dL (8.4-10.2); Potassium 4.4 mmol/L (3.5-5.1); Total Bilirubin 0.4 mg/dL (0.2-1.3); Total Protein 6.7 g/dL (6.3-8.2)
--- NOTE | 2019-12-15 22:00 | CT ---
EXAMINATION TYPE: CT abdomen pelvis wo con DATE OF EXAM: 12/15/2019 COMPARISON: None HISTORY: BILATERAL FLANK PAIN CT DLP: 608.9 mGycm Automated exposure control for dose reduction was used. TECHNIQUE: Helical acquisition of images was performed from the lung bases through the pelvis. FINDINGS: Within the limitations of noncontrast CT the following observations are made. LUNG BASES: No significant abnormality is appreciated. LIVER/GB: No significant abnormality is appreciated. PANCREAS: No significant abnormality is seen. SPLEEN: No significant abnormality is seen. ADRENALS: No significant abnormality is seen. KIDNEYS, URETERS, BLADDER: There is mild/moderate right hydronephrosis down to the right ureteropelvi c junction where there is a 5 mm calcification. There are multifocal 2-4 mm nonobstructing right renal calcifications also noted. There are a few scattered 1 mm nonobstructing left renal calcifications. The distal ureters and the urinary bladder are unremarkable. PERITONEAL CAVITY: No pneumoperitoneum. No peritoneal fluid. RETROPERITONEAL ADENOPATHY: None visualized REPRODUCTIVE ORGANS: No significant abnormality is seen URINARY BLADDER: No significant abnormality is seen. PELVIC ADENOPATHY: None visualized. OSSEOUS STRUCTURES: No significant abnormality is seen. BOWEL: No significant abnormality is seen. Normal appendix. IMPRESSION: MILD/MODERATE RIGHT OBSTRUCTIVE UROPATHY SECONDARY TO 5 MM URETEROPELVIC CALCIFICATION.
[2019-12-15] MEDS ORDERED: ACET/COD 300 MG/30 MG STARTER PACK 6 TAB BTL PO STA (22:04)
[2019-12-15] MEDS ORDERED: TAMSULOSIN 0.4 MG CAP.ER.24H PO STA (22:31)
[2019-12-15 23:31] VITALS: BP 143/65; PULSE 82; RESP 18
== END 2019-12-15 22:55 | disposition home or self-care (01) ==
LOC: EC 20:19
DX: N20.1 Calculus of ureter (principal); L02.91 Cutaneous abscess, unspecified; R82.998 Other abnormal findings in urine; N13.9 Obstructive and reflux uropathy, unspecified; E03.9 Hypothyroidism, unspecified; F41.9 Anxiety disorder, unspecified; Z79.890 Hormone replacement therapy; Z79.899 Other long term (current) drug therapy; Z87.442 Personal history of urinary calculi; Z91.048 Other nonmedicinal substance allergy status; Z91.040 Latex allergy status; Z91.011 Allergy to milk products; Z91.018 Allergy to other foods; Z88.8 Allergy status to other drugs, medicaments and biological substances; Z86.79 Personal history of other diseases of the circulatory system; Z98.890 Other specified postprocedural states; Z92.3 Personal history of irradiation
CPT/HCPCS: 36415; 80053; 83605; 83690; 85025; 81001; 87086; 74176; 99284; 96374; 96376; 96375; 96361; J2270; J2405

== ENCOUNTER → 2020-01-02 | Outpatient (CLI) | payer OTHER ==
--- NOTE | 2020-01-02 09:26 | XR ---
Abdomen HISTORY: Ureteral calculus, right-sided pain Frontal abdomen submitted and correlated to prior KUB 04/16/2019, CT 12/15/2019 Overlying bowel gas may obscure detail. Surgical clips present within the pelvis. Punctate density bueno perimposed over the lower pole the right kidney is present. Sclerotic density superimposed over the r ight L3 transverse process. IMPRESSION: Difficult to exclude right ureteral calculus. Right-sided nephrolithiasis.
== END | disposition home or self-care (01) ==
LOC: RADXRMAIN 08:34
PROVIDERS: ATTEND Urology
DX: N20.2 Calculus of kidney with calculus of ureter (principal)
CPT/HCPCS: 74018

== ENCOUNTER 2020-01-09 06:46 | Day surgery (SDC) | payer OTHER ==
[2020-01-06 11:33] VITALS: BMI 27.3
--- NOTE | 2020-01-08 19:20 | P.GSHP ---
History of Present Illness H&P Date: 01/08/20 44 yo female with history of stones. 8 weeks ago she underwent an eswl right to an 8 mm proximal right ureteral stone. The stone didnt fracture nor pass. SHe was given treatment options. SHe has chosen repeat eswl right. - Constitutional Constitutional: Denies chills, Denies fever - EENT Eyes: denies blurred vision, denies pain Ears, nose, mouth and throat: Denies headache, Denies sore throat - Cardiovascular Cardiovascular: Denies chest pain, Denies shortness of breath - Respiratory Respiratory: Denies cough, Denies 7 - Gastrointestinal Gastrointestinal: Denies abdominal pain, Denies diarrhea, Denies nausea, Denies vomiting - Genitourinary (Female) Genitourinary: Denies dysuria, Denies hematuria - Genitourinary (Male) Genitourinary: Denies dysuria, Denies hematuria - Musculoskeletal Musculoskeletal: Denies myalgias - Integumentary Integumentary: Denies pruritus, Denies rash - Neurological Neurological: Denies numbness, Denies weakness - Psychiatric Psychiatric: Denies anxiety, Denies depression - Endocrine Endocrine: Denies fatigue, Denies weight change Past Medical History Past Medical History: Supraventricular Tachycardia (SVT), Thyroid Disorder Additional Past Medical History / Comment(s): kidney stones, RECENT KIDNEY BLOCKAGE, hx. SVT-palpitations, DDD, neck & back problems, carries gene for hemachromatosis, hypothyroidism, mitral valve regurgitation History of Any Multi-Drug Resistant Organisms: None Reported Past Surgical History: Back Surgery, Cardiac Ablation Additional Past Surgical History / Comment(s): lL5-S-1 discectomy, left salpingo-oophorectomy, laparoscopy, lithotripsy, radiation to thyroid, uterine ablation, Past Anesthesia/Blood Transfusion Reactions: No Reported Reaction Additional Past Anesthesia/Blood Transfusion Reaction / Comment(s): No transfusion to date. Patient states that she has always done well with anesthesia but in November with uterine ablation she states that she noticed it "took her longer to recover" as she was very groggy into the next day and felt as if she had been drugged. Smoking Status: Never smoker - Past Family History Mother Family Medical History: Cancer Additional Family Medical History / Comment(s): breast cancer dx at age 56 Father Family Medical History: Diabetes Mellitus Additional Family Medical History / Comment(s): Diabetes Type 2, Medications and Allergies Home Medications Medication Instructions Recorded Confirmed Type Cyclobenzaprine [Flexeril] 10 mg PO DAILY PRN 12/05/15 01/06/20 History Albuterol Inhaler (Mhu) [Ventolin 1 - 2 puff INHALATION RT-Q6H PRN 09/01/18 01/06/20 History Hfa Inhaler] Cetirizine HCl [Zyrtec] 10 mg PO DAILY 09/01/18 01/06/20 History FLUoxetine HCL [PROzac] 20 mg PO HS 09/01/18 01/06/20 History Fluticasone Nasal [place] [Flonase 1 spray EA NOSTRIL BID 09/01/18 01/06/20 History Nasal [place]] Ibuprofen [Motrin] 800 mg PO DAILY PRN 09/01/18 01/06/20 History Levothyroxine Sodium 112 mcg PO DAILY 09/01/18 01/06/20 History Montelukast [Singulair] 10 mg PO DAILY 09/01/18 01/06/20 History Flecainide [Tambocor] 50 mg PO Q12HR 04/08/19 01/06/20 History HYDROcodone/APAP 10-325MG [[place] 1 tab PO Q6HR PRN 3 Days #10 tab 04/11/19 01/06/20 Rx 10-325] Ondansetron [Zofran] 4 mg PO DAILY PRN 01/06/20 01/06/20 History Tamsulosin HCl [Flomax] 0.4 mg PO DAILY 01/06/20 01/06/20 History Allergies Allergy/AdvReac Type Severity Reaction Status Date / Time cat dander Allergy Unknown Allergy Verified 12/15/19 20:30 testing positive dog dander Allergy Unknown Allergy Verified 12/15/19 20:30 testing positive grass pollen Allergy Unknown Allergy Verified 12/15/19 20:30 testing positive latex Allergy Unknown Itching Verified 12/15/19 20:30 milk Allergy Unknown Allergy Verified 12/15/19 20:30 testing positive ragweed pollen Allergy Unknown Allergy Verified 12/15/19 20:30 testing positive tree and shrub pollen Allergy Unknown Allergy Verified 12/15/19 20:30 testing positive prochlorperazine Allergy jaki gaspar Verified 12/15/19 20:30 [From Compazine] tching prochlorperazine edisylate Allergy jerking,twi Verified 12/15/19 20:30 [From Compazine] tching prochlorperazine maleate Allergy jerking,twi Verified 12/15/19 20:30 [From Compazine] tching cantolope Allergy Unknown Allergy Uncoded 12/15/19 20:30 testing positive Surgical - Exam - General well developed, well nourished, no distress - Eyes PERRL - ENT no hearing loss - Neck trachea midline - Respiratory normal expansion, normal respiratory effort - Cardiovascular Rhythm: regular - Abdomen Abdomen: non tender - Integumentary no rash, no growths - Neurologic normal coordination, normal sensation - Musculoskeletal normal gait, normal posture - Psychiatric oriented to time, oriented to person, oriented to place, speech is normal, memory intact Results - Imaging Abdominal x-ray: report reviewed, image reviewed CT scan - abdomen: report reviewed, image reviewed CT scan - pelvis: report reviewed, image reviewed Assessment and Plan Assessment: Impression: RIght proximal ureteral stone Plan: ESWL right
[~2020-01-09 06:46] MED LIST changes: +LIDOCAINE 1% (10MG/ML) FOR IV START INTRADERMA PRN; -LIDOCAINE 1% 20 ML VIAL (10MG/ML) FOR IV START INTRADERMA PRN
--- NOTE | 2020-01-09 07:13 | XR ---
EXAMINATION TYPE: XR KUB DATE OF EXAM: 01/09/2020 Comparison: 04/16/2019 Clinical History: 44-year-old female preop lithotripsy, kidney stones Findings: A couple calcifications right mid abdomen measure 4 mm and 3 mm. Bowel content largely obscures the l eft renal shadow. Surgical clips in the pelvis. Nonobstructive bowel gas pattern. Mild stool burden. Impression: Right-sided nephrolithiasis measuring 4 mm and 3 mm. Bowel content obscures the left kidney.
[2020-01-09] MEDS ORDERED: ONDANSETRON 4 MG/2 ML VIAL IVP ONE (07:28)
[2020-01-09] MEDS ORDERED: DEXAMETHASONE SOD PHOSPHATE 10 MG/ML 1 ML VIAL IV ONE (07:29)
[2020-01-09 07:35] VITALS: RESP 16; TEMP 98.4
[2020-01-09] MEDS ORDERED: fentaNYL (PF) 50 MCG/ML 2 ML AMP ONE (08:19)
[2020-01-09] MEDS ORDERED: KETAMINE 10 MG/ML 20 ML VIAL ONE (08:19)
[2020-01-09] MEDS ORDERED: LIDOCAINE 1% INJ 10MG/ML (20 ML MDV) ONE (08:19)
[2020-01-09] MEDS ORDERED: MIDAZOLAM 2 MG/2 ML VIAL ONE (08:19)
[2020-01-09] MEDS ORDERED: PROPOFOL 10 MG/ML 20 ML VIAL IV ONE (08:19)
--- NOTE | 2020-01-09 08:53 | P.OP ---
Date of Procedure: 01/09/20 Preoperative Diagnosis: Right ureteral stone Postoperative Diagnosis: Same Procedure(s) Performed: Extracorporeal shockwave lithotripsy right 2000 shocks at 4 Anesthesia: MAC Surgeon: Jamey Mcneill Estimated Blood Loss (ml): 0 Pathology: none sent Condition: stable Disposition: PACU Indications for Procedure: The patient is 44. She has an 8 mm proximal ureteral stone. She underwent shockwave lithotripsy 2 weeks ago stone did not fracture. She comes for repeat shockwave Description of Procedure: Patient brought to the operative suite. She is given IV sedation. The stone was seen at fluoroscopy. A total of 2000 shocks at energy levels 4-6 admi nistered. The stone appears to fracture nicely. Then the procedure the patient returned recovery in good condition. Tolerated procedure well be discharged upon recovery.
[2020-01-09 09:22] VITALS: BP 143/88; PULSE 80
== END 2020-01-09 09:49 | disposition home or self-care (01) ==
LOC: ORWHC2ENDO 06:46
PROVIDERS: ATTEND Urology
DX: N20.1 Calculus of ureter (principal); I47.1 Supraventricular tachycardia; E03.9 Hypothyroidism, unspecified; Z79.890 Hormone replacement therapy; Z79.899 Other long term (current) drug therapy; Z87.442 Personal history of urinary calculi; Z90.721 Acquired absence of ovaries, unilateral; Z88.8 Allergy status to other drugs, medicaments and biological substances; Z91.040 Latex allergy status; Z91.011 Allergy to milk products; Z92.3 Personal history of irradiation; Z80.3 Family history of malignant neoplasm of breast; Z83.3 Family history of diabetes mellitus; Z91.09 Other allergy status, other than to drugs and biological substances
CPT/HCPCS: 81025; 74018; 50590; J2250; J1100; J2405; J2001; J3010; J2704

== ENCOUNTER → 2020-01-16 | Outpatient (CLI) | payer OTHER ==
--- NOTE | 2020-01-16 10:58 | XR ---
EXAMINATION TYPE: XR abdomen 1V DATE OF EXAM: 01/16/2020 COMPARISON: 01/09/2020 INDICATION: Right renal stone post lithotripsy TECHNIQUE: Single view abdomen frontal projection supine view FINDINGS: There is a normal bowel gas pattern. Psoas margins are normal. No organomegaly is present. Right renal contour appears normal. Some punctate calcifications may be within the inferior pole righ t kidney. This could be within fecal debris. Previous 0.4 cm calcification is not identified. There i s a subtle density within the proximal right ureteral region measuring 0.3 cm could be a proximal ure teral stone. No suspicious pelvic calcifications are evident. IMPRESSION: 1. There may be approximately 0.3 cm calcification right ureter.
== END | disposition home or self-care (01) ==
LOC: RADXRWHC 09:16
PROVIDERS: ATTEND Urology
DX: N20.1 Calculus of ureter (principal)
CPT/HCPCS: 74018

== ENCOUNTER → 2020-05-01 | Outpatient (CLI) | payer OTHER ==
--- NOTE | 2020-05-02 10:32 | MM ---
Reason for exam: screening (asymptomatic). Last mammogram was performed 1 year and 2 months ago. History: Patient is postmenopausal. Family history of breast cancer in mother at age 58. US discontinued breast asp RT of the right breast, August 20, 2017. Benign US breast aspiration ea add LT of the left breast, August 19, 2017. Benign US breast aspiration single LT of the left breast, August 19, 2017. Took hormonal contraceptives for 4 years. Physical Findings: A clinical breast exam by your physician is recommended on an annual basis and results should be correlated with mammographic findings. MG 3D Screening Mammo W/Cad Bilateral CC and MLO view(s) were taken. Prior study comparison: February 21, 2019, bilateral MG 3d screening mammo w/cad. February 18, 2018, bilateral MG 3d diag mammo w/cad RHEA. The breast tissue is heterogeneously dense. This may lower the sensitivity of mammography. Finding: There is an intermediate concern, suspicious 2.6cm high density, obscured oval mass located 7 cm from the nipple in the upper outer quadrant of the left breast. Asymmetric breast tissue lower inner left breast 1.0cm obscured 10cm from the nipple. ASSESSMENT: Incomplete: need additional imaging evaluation, BI-RAD 0 RECOMMENDATION: Ultrasound of the left breast. [facility] will attempt to contact patient to return for ultrasound.
== END | disposition home or self-care (01) ==
LOC: RADMAMWWP 13:08
PROVIDERS: ATTEND Internal Medicine
DX: Z12.31 Encounter for screening mammogram for malignant neoplasm of breast (principal)
CPT/HCPCS: 77063; 77067

== ENCOUNTER → 2020-05-10 | Outpatient (CLI) | payer OTHER ==
--- NOTE | 2020-05-10 11:01 | USB ---
Reason for exam: additional evaluation requested from abnormal screening. History: Patient is postmenopausal. Family history of breast cancer in mother at age 58. US discontinued breast asp RT of the right breast, August 20, 2017. Benign US breast aspiration ea add LT of the left breast, August 19, 2017. Benign US breast aspiration single LT of the left breast, August 19, 2017. Took hormonal contraceptives for 4 years. Physical Findings: Nurse Summary: pain throughout breast, always, soft, nodular (nurse dw). US Breast Workup LT Left complete breast ultrasound includes all four quadrants, the retroareolar region and axilla. Finding demonstrates a 2.8 x 1.3 x 2.6cm cystic lesion at 3 o'clock and a 1.4 x 0.8 x 1.5cm cystic lesion at 10 o'clock. Multiple cystic areas. These results were verbally communicated with the patient and result sheet given to the patient on 05/10/20. ASSESSMENT: Benign, BI-RAD 2 RECOMMENDATION: Follow-up diagnostic mammogram of the left breast in 6 months.
== END | disposition home or self-care (01) ==
LOC: RADUSWWP 08:19
PROVIDERS: ATTEND Internal Medicine
DX: R92.8 Other abnormal and inconclusive findings on diagnostic imaging of breast (principal)

== ENCOUNTER → 2020-11-30 | Outpatient (CLI) | payer OTHER ==
--- NOTE | 2020-12-01 03:05 | MR ---
EXAMINATION TYPE: MR cervical spine wo con DATE OF EXAM: 11/30/2020 COMPARISON: 04/04/2019 HISTORY: Neck pain, BUE weakness/numbness, headaches Multiplanar multiecho imaging of the cervical spine was performed with no contrast. Cervical vertebra have normal alignment. There is degenerative disc space narrowing throughout the ce rvical spine. This is more noticeable from C4 to C7. There is no compression fracture. There is multi level mild posterior disc bulging and herniation from C3 3 to T1. The canal is narrowed to 6.5 mm at C4-5 which is the narrowest point. The cervical spinal cord shows normal signal pattern. There is no edema. The posterior elements are intact. The visualized brainstem appears intact. There is no sign o f cervical paraspinal mass. There is right side uncovertebral spurring and disc herniation at C7-T1 w ith neural foraminal impingement. There is left side uncovertebral spurring at C5-6 with neural jeff inal impingement. IMPRESSION: There is right side C7-T1 neural foraminal narrowing. There is left side C5-6 neural foraminal narrow ing. Multilevel mild posterior disc bulging and herniation with slight increase at C3-4 compared to o ld exam. Spinal canal narrowing at C4-5 is increased compared to old exam but no cord displacement.
== END | disposition home or self-care (01) ==
LOC: RADMRIMAIN 16:42
PROVIDERS: ATTEND Internal Medicine
DX: M48.02 Spinal stenosis, cervical region (principal); M99.71 Connective tissue and disc stenosis of intervertebral foramina of cervical region; M50.21 Other cervical disc displacement, high cervical region
CPT/HCPCS: 72141

== ENCOUNTER → 2021-02-15 | Outpatient (CLI) | payer OTHER ==
--- NOTE | 2021-02-15 17:09 | XR ---
EXAMINATION TYPE: XR chest 2V DATE OF EXAM: 02/15/2021 COMPARISON: 12/20/2009 INDICATION: Cough TECHNIQUE: Frontal and lateral views of the chest are obtained. FINDINGS: The heart size is normal. The pulmonary vasculature is normal. The lungs are clear. IMPRESSION: 1. No acute pulmonary process.
== END | disposition home or self-care (01) ==
LOC: RADXRMAIN 11:31
PROVIDERS: ATTEND Internal Medicine
DX: R05 Cough (principal)
CPT/HCPCS: 71046

== ENCOUNTER → 2022-08-28 | Outpatient (CLI) | payer OTHER ==
--- NOTE | 2022-08-29 06:48 | MR ---
EXAMINATION TYPE: MR shoulder LT wo con DATE OF EXAM: 08/28/2022 COMPARISON: None. HISTORY: Left shoulder pain, weakness, limited range of motion for several years but has recently got ten worse TECHNIQUE: Multiplanar, multisequence imaging of the left shoulder is performed without contrast. FINDINGS: Rotator Cuff: Distal supraspinatus and infraspinatus tendons are intact. Rotator cuff muscle bulk is preserved. Acromioclavicular Joint: Mild to moderate narrowing and mild superior capsular hypertrophy. Underlyin g fat plane is maintained. Glenohumeral Joint: Small sized joint effusion. No significant spurring. Labrum: The labrum appears grossly intact given limitation of non-arthrogram study. Biceps Tendon: The long head of biceps is in normal location within bicipital groove. Bone marrow signal: There is heterogeneous diminished T1 and increased T2 signal throughout the proxi mal humeral metaphysis radius along the medial aspect. There is adjacent fluid surrounding the inferi or glenohumeral ligament which is thickened Other: There is loss of normal fat in the rotator cuff interval. IMPRESSION: MRI findings are consistent with adhesive capsulitis with some reactive osseous edema diogo pected in the proximal humerus. Correlate clinically. No rotator cuff or labral tear is seen.
== END | disposition home or self-care (01) ==
LOC: RADMRIMAIN 16:29
PROVIDERS: ATTEND Internal Medicine
DX: M25.512 Pain in left shoulder (principal)

== ENCOUNTER → 2022-08-29 | Outpatient (CLI) | payer OTHER ==
[2022-08-29 13:16] VITALS: BP 134/87; PULSE 73; RESP 18; TEMP 98.2
--- NOTE | 2022-08-29 14:05 | P.GSHP ---
History of Present Illness H&P Date: 08/29/22 Chief Complaint: breaset cyst Fern is a 47 year old white female seen in consultation for Dr. Spence regarding bilateral breast cyst. She had a bilateral mammogram on which was followed by bilateral breast ultrasounds which showed bilateral breast cyst. The largest was on the left side at that time was 2.1 cm at the 3 o'clock position. She has had multiple cysts aspirated in both breasts in the past. The most recent was from the right breast in the lateral position approximately 2 years ago. At this for approximately year she has felt some fullness and discomfort in the right breast which leaves is most likely attributable to a cyst. She is not complaining of any nipple discharge or skin changes. She is not complaining of any trauma or infection in the breast. She's never had any surgery on her breasts. She carries a gene for hemochromatosis. Caffeine: 2 cups coffee/day nicotine: none chocolate: occasional BCP: 20 years ago for about 5 years Family History: mother: breast cancer at 58 doing well now; ? if had genetic testing done paternal aunt: breast cancer paternal grandfather: liver cancer related to hemochromatosis paternal uncle: liver cancer to hemochromatosis Hormonal History: menarche: 13 [id number], breast fed: no, age at first live : 22 ablation done at 39 for heavy bleeding Surgical History: uterine ablation lower back lumbar discectomy heart ablation exploratory surgery prior to uterine ablation kidney stone lithotripsy right salpingectomy Medical History: cardiac ablation mitral valve prolapse SVT Chroma ptosis Social history: Nicotine: Negative Alcohol: occasional (2-3/year) drugs: Marijuana daily to help her sleep - Constitutional Constitutional: Denies chills, Denies fever - EENT Eyes: denies blurred vision, denies pain Ears: deny: decreased hearing, tinnitus Ears, nose, mouth and throat: Reports headache, Denies sore throat - Breasts Breasts: bilateral: as per HPI - Cardiovascular Cardiovascular: Denies chest pain, Denies shortness of breath - Respiratory Respiratory: Reports cough - Gastrointestinal Gastrointestinal: Denies abdominal pain, Denies diarrhea, Denies nausea, Denies vomiting - Genitourinary (Female) Genitourinary: Reports kidney stones - Menstruation Menstruation: Reports as per HPI - Musculoskeletal Comment: bulging disc in her neck, left shoulder pain Musculoskeletal: Reports as per HPI - Integumentary Integumentary: Reports pruritus, Reports rash - Neurological Neurological: Reports numbness, Reports weakness - Psychiatric Psychiatric: Reports anxiety, Reports depression - Endocrine Endocrine: Reports fatigue - Hematologic/Lymphatic Hematologic/Lymphatic: Reports as per HPI - Allergic/Immunologic Allergic/Immunologic: Reports as per HPI, Reports seasonal allergies Past Medical History Past Medical History: Supraventricular Tachycardia (SVT), Thyroid Disorder Additional Past Medical History / Comment(s): kidney stones, RECENT KIDNEY BLOCKAGE, hx. SVT-palpitations, DDD, neck & back problems, carries gene for hemachromatosis, hypothyroidism, mitral valve regurgitation History of Any Multi-Drug Resistant Organisms: None Reported Past Surgical History: Back Surgery, Cardiac Ablation Additional Past Surgical History / Comment(s): lL5-S-1 discectomy, left salpingo-oophorectomy, laparoscopy, lithotripsy, radiation to thyroid, uterine ablation, Past Anesthesia/Blood Transfusion Reactions: No Reported Reaction Additional Past Anesthesia/Blood Transfusion Reaction / Comment(s): No transfusion to date. Patient states that she has always done well with anesthesia but in November with uterine ablation she states that she noticed it "took her longer to recover" as she was very groggy into the next day and felt as if she had been drugged. Past Psychological History: Anxiety Smoking Status: Never smoker Past Alcohol Use History: None Reported Past Drug Use History: Marijuana Additional Drug Use History / Comment(s): marijuana daily - Past Family History Mother Family Medical History: Cancer Additional Family Medical History / Comment(s): breast cancer dx at age 56 Father Family Medical History: Diabetes Mellitus Additional Family Medical History / Comment(s): Diabetes Type 2, Medications and Allergies Home Medications Medication Instructions Recorded Confirmed Type Cyclobenzaprine [Flexeril] 10 mg PO DAILY PRN 12/05/15 08/29/22 History Albuterol Inhaler [Ventolin Hfa 1 - 2 puff INHALATION RT-Q6H PRN 09/01/18 08/29/22 History Inhaler] Cetirizine HCl [Zyrtec] 10 mg PO DAILY 09/01/18 08/29/22 History FLUoxetine HCL [PROzac] 20 mg PO HS 09/01/18 08/29/22 History Fluticasone Nasal [place] [Flonase 1 spray EA NOSTRIL BID 09/01/18 08/29/22 History Nasal [place]] Ibuprofen [Motrin] 800 mg PO DAILY PRN 09/01/18 08/29/22 History Levothyroxine Sodium 112 mcg PO DAILY 09/01/18 08/29/22 History HYDROcodone/APAP 10-325MG [[place] 1 tab PO Q6HR PRN 3 Days #10 tab 04/11/19 08/29/22 Rx 10-325] Allergies Allergy/AdvReac Type Severity Reaction Status Date / Time cat dander Allergy Unknown Allergy Verified 08/29/22 13:10 testing positive dog dander Allergy Unknown Allergy Verified 08/29/22 13:10 testing positive grass pollen Allergy Unknown Allergy Verified 08/29/22 13:10 testing positive latex Allergy Unknown Itching Verified 08/29/22 13:10 milk Allergy Unknown Allergy Verified 08/29/22 13:10 testing positive ragweed pollen Allergy Unknown Allergy Verified 08/29/22 13:10 testing positive tree and shrub pollen Allergy Unknown Allergy Verified 08/29/22 13:10 testing positive prochlorperazine Allergy jerking,twi Verified 08/29/22 13:10 [From Compazine] tching prochlorperazine edisylate Allergy jerking,twi Verified 08/29/22 13:10 [From Compazine] tching prochlorperazine maleate Allergy jerking,twi Verified 08/29/22 13:10 [From Compazine] tching cantolope Allergy Unknown Allergy Uncoded 08/29/22 13:10 testing positive Surgical - Exam Vital Signs Temp Pulse Resp BP Pulse Ox 98.2 F 73 18 134/87 98 08/29/22 13:12 08/29/22 13:12 08/29/22 13:12 08/29/22 13:12 08/29/22 13:12 - General moderate distress - Eyes normal ocular movement - ENT no hearing loss - Neck trachea midline - Respiratory normal respiratory effort, clear to auscultation - Cardiovascular Rhythm: regular Heart Sounds: normal: S1, S2 - Abdomen Abdomen: soft, non tender, no guarding, no rigid, no rebound - Integumentary normal turgor - Neurologic no disoriented, no combative - Musculoskeletal normal gait - Psychiatric oriented to time, oriented to person, oriented to place, speech is normal, memory intact Breast Exam: BRA: [id number] inspection: bilateral grade 2/3 ptosis; right breast larger than left breast palpation: right breast: multipositional exam fibrocystic changes, tender to palpation, no discrete dominant masses or notches of concern Right axilla: No adenopathy of concern Left breast: Multi-positional exam no dominant masses or nodules of concern, fibrocystic changes, tender but not as tender as the right breast Left axilla: No adenopathy of concern Results Mammogram and ultrasound from 2021 personally reviewed Assessment and Plan Assessment: Impression: Mastodynia Fibrocystic breast changes No recent mammogram Rotator cuff/shoulder pain left shoulder Plan: Patient will be given book on breast pain Bilateral mammogram and ultrasound Follow-up with radiographic studies CC: Dr. Spence
== END ==
LOC: WWCWWP 12:33
PROVIDERS: ATTEND Surgery
DX: N64.4 Mastodynia (principal); Z96.612 Presence of left artificial shoulder joint; Z91.011 Allergy to milk products; Z91.040 Latex allergy status; Z88.8 Allergy status to other drugs, medicaments and biological substances; Z91.048 Other nonmedicinal substance allergy status; Z91.018 Allergy to other foods

== ENCOUNTER → 2023-03-26 | Outpatient (CLI) | payer OTHER ==
[2023-03-27 01:49] LABS: Basophils # (A) 0.05 X 10*3/uL (0.00-0.10); Basophils % (A) 0.8 %; Eosinophils # (A) 0.12 X 10*3/uL (0.04-0.35); Eosinophils % (A) 1.8 %; HCT 44.9 % (37.2-46.3); HGB 15.2 d/dL (12.0-15.0); Lymphocytes # (A) 2.28 X 10*3/uL (0.90-5.00); Lymphocytes % (A) 35.1 %; MCH 32.7 pg (27.0-32.0); MCHC 33.9 d/dL (32.0-37.0); MCV 96.6 FL (80.0-97.0); Mean Platelet Volume 9.9 FL (9.5-12.2); Monocytes # (A) 0.47 X 10*3/uL (0.20-1.00); Monocytes % (A) 7.2 %; NRBC Per 100 WBC 0 X 10*3/uL (0.00-0.01); Neutrophils # (A) 3.56 X 10*3/uL (1.80-7.70); Neutrophils % (A) 54.9 %; Platelet Count 221 X 10*3/uL (140-440); RBC 4.65 X 10*6/uL (4.10-5.20); RDW 12.9 % (11.5-14.5); WBC 6.49 X 10*3/uL (4.50-10.00)
[2023-03-27 01:53] LABS: Anion Gap 9.6 mmol/L (4.00-12.00); Carbon Dioxide 27.4 mmol/L (21.6-31.8); Potassium 4.8 mmol/L (3.5-5.5)
== END | disposition home or self-care (01) ==
LOC: LABPAT 15:36
PROVIDERS: ATTEND Orthopaedic Surgery
DX: Z01.812 Encounter for preprocedural laboratory examination (principal); M75.42 Impingement syndrome of left shoulder; R94.31 Abnormal electrocardiogram [ECG] [EKG]
CPT/HCPCS: 80051; 85025; 93005

== ENCOUNTER → 2023-10-30 | Outpatient (CLI) | payer OTHER ==
--- NOTE | 2023-10-30 08:45 | MM ---
Reason for Exam: Follow-up at short interval from prior study. Last mammogram was performed 1 year(s) and 1 month(s) ago. Patient History: Menarche at age 14. First Full-Term at age 21. Patient used Hormonal Contraceptives for 4 years. 08/19/2017, Benign Cyst Aspiration on the left side. 08/19/2017, Benign Cyst Aspiration on the left side. 08/20/2017, US discontinued breast asp RT on the right side. Mother had breast cancer, age 58. Risk Values: Sarah 5 year model risk: 1.7%. NCI Lifetime model risk: 17.1%. Tissue Density: The breasts are heterogeneously dense, which may obscure small masses. Findings: Analyzed By CAD. No evidence for mass or distortion. Microclip marker is left breast from prior biopsy. No suspicious calcifications seen within either breast. Ultrasound recommended for the patient's clinical symptoms. Managed clinically as well. Overall Assessment: Incomplete: need additional imaging evaluation, BI-RAD 0 Management: Diagnostic Breast Ultrasound of both breasts. . Results were given to the patient verbally at the time of exam. Patient should continue monthly self-breast exams. A clinical breast exam by your physician is recommended on an annual basis. This exam should not preclude additional follow-up of suspicious palpable abnormalities. Note on Sarah scores and lifetime risk: 1. A Sarah score greater than 3% is considered moderate risk. If this is the case, consider specialist referral to assess eligibility for a risk reducing agent. 2. If overall lifetime risk for the development of breast cancer is 20% or higher, the patient may qualify for future screening with alternating mammogram and breast MRI. Electronically signed and approved by: Preet Gonzalez M.D. Radiologis
--- NOTE | 2023-10-30 09:22 | USB ---
Reason for Exam: Follow-up at short interval from prior study. Patient History: Menarche at age 14. First Full-Term at age 21. Perimenopausal. Patient used Hormonal Contraceptives for 4 years. 08/19/2017, Benign Cyst Aspiration on the left side. 08/19/2017, Benign Cyst Aspiration on the left side. 08/20/2017, US discontinued breast asp RT on the right side. Paternal aunt had breast cancer, age 70. Mother had breast cancer, age 58. Risk Values: Sarah 5 year model risk: 1.7%. NCI Lifetime model risk: 17.1%. Technique: Method: Whole Breast Handheld. Doppler: Color. Patient Position: Lateral Decubitus. Prior Study Comparison: 05/01/2020 Bilateral Screening Mammogram, [facility]. 09/06/2021 Bilateral Diagnostic Mammogram, [facility]. 09/25/2022 Bilateral MG 3D diag mammo w/cad RHEA, [facility]. 09/25/2022 Bilateral US breast BILAT, [facility]. Findings: The whole breast of both breasts, the axilla of both breasts and the retroareolar of both breasts were scanned. Scattered bilateral cysts are redemonstrated. The largest right breast is noted at the 9:00 12 cm from the nipple measuring 6 mm. The largest cyst within the left breast is noted at the 2:00 position 5 cm from the nipple measuring 7.4 mm. No solid masses seen.. Overall Assessment: Benign, BI-RAD 2 Management: Screening Mammogram of both breasts in 1 year. A clinical breast exam by your physician is recommended on an annual basis and results should be correlated with mammographic findings. This exam should not preclude additional follow-up of suspicious palpable abnormalities. Results were given to the patient verbally at the time of exam. Electronically signed and approved by: Preet Gonzalez M.D. Radiologis
== END | disposition home or self-care (01) ==
LOC: RADMAMWWP 07:54
PROVIDERS: ATTEND Surgery
DX: N60.11 Diffuse cystic mastopathy of right breast (principal); N60.12 Diffuse cystic mastopathy of left breast; R92.333 Mammographic heterogeneous density, bilateral breasts; N64.4 Mastodynia; Z80.3 Family history of malignant neoplasm of breast
CPT/HCPCS: 77066; 76641; G0279; 77062

== ENCOUNTER → 2023-12-25 | Outpatient (CLI) | payer OTHER ==
--- NOTE | 2023-12-27 17:53 | US ---
EXAMINATION TYPE: US kidneys/renal and bladder DATE OF EXAM: 12/25/2023 COMPARISON: US 09/06/2021 CLINICAL INDICATION: Female, 48 years old with history of R10.9 FLANK PAIN; Bilateral flank pain x se veral months. Hx stones. Hx kidney stones, lithotripsy. EXAM MEASUREMENTS: Right Kidney: 10.5 x 6.8 x 4.8 cm Left Kidney: 9.0 x 4.0 x 4.9 cm Right Kidney: No hydronephrosis or masses seen Left Kidney: 2 hyperechoic foci seen at mid and lower pole. Focus at mid measures: 0.5 x 0.5 x 0.3 cm. Focus at lower pole measures: 0.8 x 0.7 x 0.3 cm. Bladder: Appears wnl Bilateral Jets seen: Yes No hydronephrosis involving both kidneys. No solid masses. No nephrolithiasis involving the right kid patrice. There are 2 nonobstructing stones identified within the left kidney. Cortical medullary differen tiation is maintained bilaterally. Anechoic normal-appearing urinary bladder with bilateral ureteral jets identified. IMPRESSION: 1. No hydronephrosis. 2. Nonobstructive left renal calculi.
== END | disposition home or self-care (01) ==
LOC: RADUSWWP 09:42
PROVIDERS: ATTEND Internal Medicine
DX: N20.0 Calculus of kidney (principal)
CPT/HCPCS: 76770

== ENCOUNTER → 2023-12-31 | Outpatient (CLI) | payer OTHER ==
--- NOTE | 2023-12-31 13:50 | MR ---
EXAMINATION TYPE: MR cervical spine wo con DATE OF EXAM: 12/31/2023 11:06 AM CLINICAL INDICATION:Female, 48 years old with history of M54.2 CERVICALGIA; [facility], COMPARISON: 11/30/2020 . TECHNIQUE: Multi planar, multi sequence imaging was performed utilizing: T1-weighted, T2-weighted, an d turbo inversion recovery imaging of the cervical spine. IV Contrast: cc (none if empty) FINDINGS: Alignment: The cervical vertebral bodies have preserved heights. Alignment is within normal limits gi edilma patient positioning. Bones: Scattered Modic endplate changes with osteophytes and disc space narrowing. Multilevel degener ative disc disease is noted and most pronounced at the C5-C7 vertebral levels. Cord: The spinal cord is unremarkable with regards to their signal intensity and morphology. Discs: Intervertebral disc signal is maintained. C2-C3: No significant disc pathology. The spinal canal is patent. No neural foraminal stenosis. C3-C4: No significant disc pathology. The spinal canal is patent. No neural foraminal stenosis. C4-C5: A disc osteophyte complex is present with moderate spinal canal stenosis. Bilateral facet and uncovertebral joint arthropathy are present with mild bilateral neural foraminal stenosis. C5-C6: A disc osteophyte complex is present with mild to moderate spinal canal stenosis. Bilateral f acet and uncovertebral joint arthropathy are present with moderate left and mild right neural foramin al stenosis. C6-C7: No significant disc pathology. The spinal canal is patent. Bilateral facet and uncovertebral joint arthropathy are present with moderate left and and mild to moderate right neural foraminal sten osis. C7-T1: No significant disc pathology. The spinal canal is patent. Bilateral facet and uncovertebral joint arthropathy are present with moderate bilateral neural foraminal stenosis. Other: Mucosal thickening of the left maxillary sinus with retention cyst. Left thyroid nodule which is high T2 signal measuring 12 mm. IMPRESSION: Overall findings are not significantly changed from prior. 1. No evidence for disc herniation or significant spinal canal stenosis. 2. 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 Neural foraminal stenosis worse at C6-C7 with moderate left, C5-C6 and moderate left, mild to moderate right C6-C7 and moderate bila teral C7-T1.
== END | disposition home or self-care (01) ==
LOC: RADMRIMAIN 10:16
PROVIDERS: ATTEND Internal Medicine
DX: M47.812 Spondylosis without myelopathy or radiculopathy, cervical region (principal); M50.30 Other cervical disc degeneration, unspecified cervical region; M99.71 Connective tissue and disc stenosis of intervertebral foramina of cervical region
CPT/HCPCS: 72141

== ENCOUNTER → 2024-01-22 | Outpatient (CLI) | payer OTHER ==
[2024-01-22 17:42] LABS: Carbon Dioxide 28.1 mmol/L (21.6-31.8); Chloride 102 mmol/L (96-109); Potassium 4.7 mmol/L (3.5-5.5); Sodium 142 mmol/L (135-145); Uric Acid 5.4 mg/dL (2.9-7.7)
== END | disposition home or self-care (01) ==
LOC: LABWHC1 11:55
PROVIDERS: ATTEND Urology
DX: N20.0 Calculus of kidney (principal)
CPT/HCPCS: 36415; 82310; 82374; 82435; 82565; 83735; 84100; 84132; 84295; 84550

== ENCOUNTER → 2024-01-22 | Outpatient (CLI) | payer OTHER ==
--- NOTE | 2024-01-23 11:51 | MR ---
EXAMINATION TYPE: MR knee RT wo con DATE OF EXAM: 01/22/2024 COMPARISON: None HISTORY: RT knee pain TECHNIQUE: Multiplanar, multisequence imaging of the right knee is performed without IV contrast. FINDINGS: There is no bone contusion or fracture. There is mild to moderate thinning and irregularity of the patellar cartilage. There is a full-thickn ess defect in the medial facet. Articular cartilages of the medial and lateral compartments are fairly well preserved. There is physiologic joint fluid and no Zamora's cyst. The medial and lateral collateral ligaments and cruciate ligaments are intact. There is a small vertical tear within the body of the medial meniscus extending to the inferior surfa ce. The lateral meniscus is intact. The quadriceps and patellar tendons are intact. The anterior fat pads are normal. IMPRESSION: 1. Moderate degenerative changes of the patellofemoral compartment as described above. 2. Small vertical tear of the body of the medial meniscus as described above.
== END | disposition home or self-care (01) ==
LOC: RADMRIMAIN 10:59
PROVIDERS: ATTEND Orthopaedic Surgery
DX: M17.11 Unilateral primary osteoarthritis, right knee (principal); S83.241A Other tear of medial meniscus, current injury, right knee, initial encounter